=== PATIENT | female | born 1990 | race Caucasian/White ===

== ENCOUNTER 2019-04-06 16:56 | Emergency (ER) | payer OTHER, SELFPAY ==
[2019-04-06 17:18] VITALS: BP 145/85; PULSE 83; RESP 18; TEMP 36.8; O2SAT 100
--- NOTE | 2019-04-06 17:28 | ED.URI ---
HPI - URI/Sore Throat General Chief Complaint: Upper Respiratory Infection Stated Complaint: Sore Throat/Cough Time Seen by Provider: 04/06/19 17:23 Source: patient and RN notes reviewed Mode of arrival: ambulatory Limitations: no limitations History of Present Illness HPI Narrative: Patient presents today with a 2 to 3-day history of sore throat, postnasal drip, nasal congestion, cough, fatigue. Denies fever. No history of asthma. Pain increases with swallowing. She currently rates her sore throat 8/10 but has been using Chloraseptic and tea without much relief. MD elicited complaint: cough and sore throat Related Data Home Medications Medication Instructions Recorded Confirmed No Home Medications 04/06/19 04/06/19 Allergies Allergy/AdvReac Type Severity Reaction Status Date / Time No Known Allergies Allergy Verified 04/06/19 17:16 Review of Systems Review of Systems: Narrative: CONSTITUTIONAL: Denies body aches, fever, chills, or sweats.+ Fatigue EYES: Denies visual changes, redness, or discharge. ENT: Denies rhinorrhea, or otalgia.+ Sore throat, congestion, postnasal drip CARDIOVASCULAR: Denies chest pain, palpitations, or edema. RESPIRATORY: Denies dyspnea.+ Cough GASTROINTESTINAL: Denies abdominal pain, nausea, vomiting, or diarrhea. GENITOURINARY: Denies dysuria or hematuria. SKIN: Denies rash, itching, or wounds. MUSCULOSKELETAL: Denies back pain, joint pain, or myalgia. NEUROLOGIC: Denies headache, numbness, tingling, or weakness. PSYCH: Denies depression or anxiety. PMFSH Social History Social History Gender identity (if verbalized by the patient): Female Comments At time of signature, I have reviewed and agree with nursing past medical, surgical, social and family history unless otherwise noted. Please see nursing chart for further information. There is no relevant family history pertinent to the presenting complaint Exam Narrative: Exam Narrative: GENERAL: Mildly ill-appearing, well-nourished, and in no acute distress. HEAD: Normocephalic, atraumatic. EYES: EOMI. No redness or drainage. Conjunctivae normal. ENT: Mucous membranes pink and moist. Nares congested. No rhinorrhea. TMs normal bilaterally. Throat mildly erythematous and edematous without exudate. Uvula midline. NECK: Normal AROM. Supple. No lymphadenopathy. CHEST: No respiratory distress. Clear to auscultation. HEART: Regular rate and rhythm. No murmur appreciated. Normal peripheral pulses. EXTREMITIES: Normal range of motion. No edema. SKIN: Warm, dry, no rash. NEURO: No focal deficits. Alert and oriented x3. Gait steady. PSYCH: Normal affect. No signs of depression or anxiety. Course Vital Signs Vital signs: Vital Signs Temperature 98.2 F 04/06/19 17:18 Pulse Rate 83 04/06/19 17:18 Respiratory Rate 18 04/06/19 17:18 Blood Pressure 145/85 H 04/06/19 17:18 Pulse Oximetry 100 04/06/19 17:18 Temperature 98.2 F 04/06/19 17:18 Pulse Rate 83 04/06/19 17:18 Respiratory Rate 18 04/06/19 17:18 Blood Pressure 145/85 H 04/06/19 17:18 Pulse Oximetry 100 04/06/19 17:18 Reviewed. Pt has been instructed to follow up with her PCP regarding her elevated blood pressure today. MDM - URI/Sore Throat Differential Diagnosis Differential diagnosis: Likely upper respiratory infection, otitis media, sinusitis, viral infection, bronchitis, pharyngitis and other (Strep throat) Lab Data Attestation: I reviewed the patient's lab results. Labs: Strep Screen Presumptive Negative *(Reference Range: Negative)* Strep Screen Presumptive Negative *(Reference Range: Negative)* Critical Care Time Critical Care Time Critical Care Time: No Discharge Plan Discharge Clinical Impression: Upper respiratory infection Qualifiers: URI type: unspecified URI Qualified Code(s): J06.9 - Acute upper respiratory infection, unspecified Patient Disposition: Home
--- NOTE | 2019-04-14 14:43 | PC.NURSE ---
Pt came in for reprint of work note from [employer] 04/06/19. Note reprinted and given to pt.
== END 2019-04-06 17:35 | disposition home or self-care (01) ==
PROVIDERS: Emergency Provider Nurse Practitioner
DX: J06.9 Acute upper respiratory infection, unspecified (principal)
CPT/HCPCS: 87081; 87880; 99213; G0463

== ENCOUNTER 2019-09-26 15:09 | Emergency (ER) | payer SELFPAY ==
--- NOTE | ~2019-09-26 | XR_ITS ---
XR knee LT min 4V DATE: 09/26/2019 16:01 INDICATION: Left knee pain and swelling TECHNIQUE: Crosstable lateral, AP and bilateral oblique views COMPARISON: None FINDINGS: A fixation plate is identified at the posterosuperior aspect of the lateral femoral condyle . There are drill holes in the distal femur and proximal tibia likely related to past cruciate ligame nt repair. There is prominent suprapatellar knee joint effusion. There is mild periarticular spurring at the patellofemoral and medial and lateral compartments, consi stent with osteoarthritis. No fracture or dislocation, periosteal reaction or bone destruction is detected. IMPRESSION: Prominent suprapatellar knee joint effusion Mild tricompartment osteoarthritis Postoperative change likely related to prior cruciate ligament repair Reviewed, dictated and finalized at location A.
[2019-09-26 15:10] VITALS: BP 143/99; PULSE 81; RESP 18; TEMP 37; O2SAT 100
--- NOTE | 2019-09-26 15:58 | ED.GENADULT ---
HPI - General Adult General Chief complaint: Extremity Injury, Lower Stated complaint: knee swelling Time Seen by Provider: 09/26/19 15:36 Source: patient History of Present Illness HPI narrative: Patient is a 28 y/o female complaining of left knee pain and swelling for last 2 days. She states that her pain is sharp and and rates it as 8/10. Her pain is worse with movement. She denies any fever, chill, redness or recent injury. She had left ACL reconstruction surgery in the past. Related Data Home Medications Medication Instructions Recorded Confirmed No Home Medications 04/06/19 09/26/19 Allergies Allergy/AdvReac Type Severity Reaction Status Date / Time No Known Allergies Allergy Verified 09/26/19 15:13 Review of Systems Constitutional: Constitutional: Denies chills, Denies fever(s), Denies headache(s) and Denies weakness Eyes: Eyes: Denies blurry vision ENT: Denies headache(s) and Denies neck pain Cardiovascular: Cardiovascular: Denies chest pain and Denies dyspnea Respiratory: Respiratory: Denies cough and Denies dyspnea Gastrointestinal: Gastrointestinal: Denies abdominal pain, Denies diarrhea, Denies nausea and Denies vomiting Genitourinary: Genitourinary: Denies hematuria and Denies dysuria Musculoskeletal: Musculoskeletal: Denies back pain, Reports arthralgias (left knee pain) and Denies neck pain Neurologic: Denies headache(s) and Denies weakness [facility] Social History Social History Gender identity (if verbalized by the patient): Female Exam Const: General: no acute distress and well developed Orientation/consciousness: oriented to person, oriented to place, oriented to time and patient oriented x3 HENMT: Head: normocephalic Ears: external ears normal General nose exam: Normal external nose present Eyes: General: appearance normal, both eyes and all related structures Conjunctivae: conjunctivae normal Neck: Neck: normal visual inspection and full ROM Chest: Chest palpation & inspection: normal inspection of the chest and no tenderness Resp: Effort & Inspection: normal respiratory effort and able to speak in complete sentences Cardio: Rate: regular rate Rhythm: regular rhythm GI: GI Palp: No abdominal tenderness and Yes Soft to palpation Skin: General skin exam: normal color and turgor normal Neuro: General: oriented to person, oriented to place, oriented to time and patient oriented x3 Cognition (Neuro): normal cognition Extrem: General: normal to inspection, full ROM and no pedal edema Left lower extremity: knee Details: tenderness Psych: Appearance: grossly normal Mental Status: mental status grossly normal Affect: normal affect Course Vital Signs Vital signs: Vital Signs Temperature 37.0 C 09/26/19 15:10 Pulse Rate 81 09/26/19 15:10 Respiratory Rate 18 09/26/19 15:10 Blood Pressure 143/99 H 09/26/19 15:10 Pulse Oximetry 100 09/26/19 15:10 Temperature 37.0 C 09/26/19 15:10 Pulse Rate 81 09/26/19 15:10 Respiratory Rate 18 09/26/19 15:10 Blood Pressure 143/99 H 09/26/19 15:10 Pulse Oximetry 100 09/26/19 15:10 Medical Decision Making Vital Signs Vital Signs: Vital Signs Temperature 37.0 C 09/26/19 15:10 Pulse Rate 81 09/26/19 15:10 Respiratory Rate 18 09/26/19 15:10 Blood Pressure 143/99 H 09/26/19 15:10 Pulse Oximetry 100 09/26/19 15:10 Temperature 37.0 C 09/26/19 15:10 Pulse Rate 81 09/26/19 15:10 Respiratory Rate 18 09/26/19 15:10 Blood Pressure 143/99 H 09/26/19 15:10 Pulse Oximetry 100 09/26/19 15:10 Discharge Plan Discharge Clinical Impression: Knee pain, Effusion of right knee Patient Disposition: Home, Self-Care Condition: Stable Instructions: Knee Pain (ED), Swollen Joint (ED) Prescriptions: No Action No Home Medications RF: 0 Follow-up/Referrals: PHYSICIAN,RECREATIONAL LEADER [Primary Care Provider]
== END 2019-09-26 17:29 | disposition home or self-care (01) ==
PROVIDERS: Emergency Provider Emergency Medicine
DX: M25.562 Pain in left knee (principal); M25.462 Effusion, left knee
CPT/HCPCS: 73564; 99283

== ENCOUNTER 2020-11-07 08:49 | Emergency (ER) | payer OTHER, SELFPAY ==
[2020-11-07 08:58] VITALS: BP 163/101; PULSE 68; RESP 18; TEMP 36.7; O2SAT 98
--- NOTE | 2020-11-07 09:49 | ED.GENADULT ---
HPI - General Adult General Chief complaint: Wound/Laceration Stated complaint: L Leg Wound Time Seen by Provider: 11/07/20 09:11 Source: patient and RN notes reviewed Mode of arrival: ambulatory Limitations: no limitations History of Present Illness HPI narrative: Patient a 29-year-old female who presents with abscess to the anterior left knee over the prepatellar region she noted a small pimple which increased in size over the last day she was able to drain moderate amount of purulent drainage yesterday she notes redness and tenderness worse with touch and activity denies any fever chills nausea vomiting or immunocompromise Related Data Allergies Allergy/AdvReac Type Severity Reaction Status Date / Time No Known Allergies Allergy Verified 09/26/19 15:13 Review of Systems Review of Systems: All systems reviewed & are unremarkable except as noted in HPI and below PMFSH Social History Social History Gender identity (if verbalized by the patient): Female Exam Narrative: GENERAL: Well-appearing, well-nourished, and in no acute distress. HEAD: Normocephalic, atraumatic. EYES: PERRLA and EOMI. ENT: Nares clear, no rhinorrhea or epistaxis. Mucous membranes moist. CHEST: Clear to auscultation. No respiratory distress. No wheezes rales or rhonchi HEART: Regular rate and rhythm. No murmur heard. Normal peripheral pulses. EXTREMITIES: Normal range of motion. No edema. Red tender swollen area to the anterior left knee in the prepatellar region there is surrounding erythema measuring 3 cm in diameter there is 1/2 cm opening with purulent drainage obtained manually no I&D was necessary SKIN: Warm, dry, no rash. NEURO: No focal deficits. Alert and oriented x3. Neurovascularly intact PSYCH: Normal mood and affect. Course Course Emergency Course: Patient with skin abscess afebrile nontoxic-appearing nondistressed wound cultures were obtained patient will be discharged with outpatient follow-up provided with reasons to return agreeing with the treatment plan Vital Signs Vital signs: Vital Signs Temperature 98.1 F 11/07/20 08:58 Pulse Rate 68 11/07/20 08:58 Respiratory Rate 18 11/07/20 08:58 Blood Pressure 163/101 H 11/07/20 08:58 Pulse Oximetry 98 11/07/20 08:58 Temperature 98.1 F 11/07/20 08:58 Pulse Rate 68 11/07/20 08:58 Respiratory Rate 18 11/07/20 08:58 Blood Pressure 163/101 H 11/07/20 08:58 Pulse Oximetry 98 11/07/20 08:58 Medical Decision Making MDM Narrative Medical decision making narrative: No signs of neurological or vascular compromise on exam. Compartments and tisues are soft without signs of compartment syndrome. Pain is felt appropriate for further evaluation on an outpatient basis. Patient had wound cultures obtained will be treated for skin abscess provided with reasons to return I&D was not necessary given the opening and drainage Vital Signs Vital Signs: Vital Signs Temperature 98.1 F 11/07/20 08:58 Pulse Rate 68 11/07/20 08:58 Respiratory Rate 18 11/07/20 08:58 Blood Pressure 163/101 H 11/07/20 08:58 Pulse Oximetry 98 11/07/20 08:58 Temperature 98.1 F 11/07/20 08:58 Pulse Rate 68 11/07/20 08:58 Respiratory Rate 18 11/07/20 08:58 Blood Pressure 163/101 H 11/07/20 08:58 Pulse Oximetry 98 11/07/20 08:58 Discharge Plan Discharge Clinical Impression: Abscess Patient Disposition: Home, Self-Care Condition: Stable Instructions: Antibiotic Form, Abscess (ED) Additional Instructions: Follow up with primary care in the next 2-3 days for re-evaluation return if symptoms worsen or concerns, any increase in redness swelling pain or fever over 100.5 Clean wound with mild soapy water. Apply antibiotic ointment and clean dressing at least three times daily Follow patient education sheets Warm compresses 4 times a day for 15 minutes each Prescriptions: New doxycycl
== END 2020-11-07 10:09 | disposition home or self-care (01) ==
PROVIDERS: Emergency Provider Emergency Medicine
DX: L02.416 Cutaneous abscess of left lower limb (principal)
CPT/HCPCS: 99283

== ENCOUNTER 2020-12-27 22:55 | Emergency (ER) | payer OTHER, SELFPAY ==
[2020-12-27 22:58] VITALS: BP 137/89; PULSE 72; RESP 18; TEMP 36.9; O2SAT 100
[2020-12-27] MEDS: SODIUM CHLORIDE 0.9% IV 1,000 ML 999 ML IV CONT (23:34)
[2020-12-27] MEDS: ONDANSETRON INJ 4 MG/2 ML VIAL IV PUSH (23:35)
[2020-12-27 23:49] LABS: Basophils Absolute Auto 0.1 K/mm3 (0.0-0.1); Basophils Percent Auto 0.5 % (0.2-1.2); Eosinophils Absolute Auto 0.2 K/mm3 (0-0.3); Eosinophils Percent Auto 1.2 % (0-4.4); Hematocrit 40.9 % (37.0-47.0); Hemoglobin 13.4 g/dL (12.0-15.0); Immature Granulocyte Absolute 0.08 K/mm3 (0.00-0.031); Immature Granulocyte Percent A 0.4 % (0-0.5); Lymphocytes Percent Auto 11.9 % (18.3-44.2); Mean Corpuscular HGB Conc 32.8 g/dl (32-36); Mean Corpuscular Hemoglobin 29.3 pg (26-34); Mean Corpuscular Volume 89.5 fl (80-100); Mean Platelet Volume 10.6 fl (7.4-10.4); Monocytes Absolute Auto 1.1 K/mm3 (0.1-0.6); Monocytes Percent Auto 5.7 % (2.6-8.5); Neutrophils Absolute Auto 14.9 K/mm3 (1.3-6.7); Neutrophils Percent Auto 80.3 % (45.5-73.1); Platelet Count Result 269 k/mm3 (150-375); Red Blood Count 4.57 M/mm3 (4.2-5.4); Red Cell Distribution Width 13.2 % (11.5-14.5); White Blood Count 18.5 K/mm3 (4.5-10.0)
[2020-12-27 23:59] LABS: Add Urine Microscopic? YES; Appearance Urine Cloudy (Clear); Bilirubin Urine Negative (Negative); Blood Urine Negative (Negative); Color Urine Amber (Yellow); Glucose Urine UA Negative (Negative); Ketones Urine 1+ mg/dL (Negative); Leukocyte Esterase Ur 2+ LEU/UL (Negative); Mucus Urine Heavy /lpf; Nitrate Urine Negative (Negative); Protein Urine 1+ mg/dL (Negative); Specific Grav Ur 1.028 (1.001-1.035); Squamous Epithelial Cell Urine Many /hpf (Few); WBC Urine 21-30 /hpf
[2020-12-28 00:15] LABS: Alanine Aminotransferase 20 U/L (4-35); Albumin Level 4.5 g/dL (3.5-5.1); Alkaline Phosphatase 63 U/L (38-126); Anion Gap 8 mmol/L (8-16); Aspartate Amino Transferase 22 U/L (14-36); Bilirubin,Total 0.6 mg/dL (0.2-1.3); Blood Urea Nitrogen 7 mg/dL (7-17); Calcium 9.1 mg/dL (8.4-10.2); Carbon Dioxide 27 mmol/L (22-30); Chloride 98 mmol/L (98-107); Estimated CRCL calculation 129 ml/min; Estimated Glomerular Filt Rate > 60; Glucose 105 mg/dL (65-110); Potassium 3.7 mmol/L (3.4-5.0); Sodium 133 mmol/L (137-145)
--- NOTE | 2020-12-28 00:27 | ED.GENADULT ---
HPI - General Adult General Chief complaint: Nausea/Vomiting/Diarrhea Stated complaint: vomiting Time Seen by Provider: 12/27/20 23:03 Source: patient and family Mode of arrival: ambulatory Limitations: no limitations History of Present Illness HPI narrative: 30-year-old with no major medical problems here with complaints of nausea, vomiting and diarrhea for past 3 days however she states her diarrhea has improved but she is unable to keep any fluids down. She feels weak and dehydrated. No other family member is sick at this time. Onset (ago): day(s) (3) Severity: moderate Relieving factors: none Exacerbating factors: none Associated symptoms: nausea/vomiting and weakness Related Data Allergies Allergy/AdvReac Type Severity Reaction Status Date / Time No Known Allergies Allergy Verified 12/27/20 23:03 Review of Systems Review of Systems: All systems reviewed & are unremarkable except as noted in HPI and below Constitutional: Constitutional: Reports no additional constitutional complaints Eyes: Eyes: Reports no additional eye complaints ENT: Reports system reviewed and no additional complaints, except as documented Cardiovascular: Cardiovascular: Reports no additional cardiovascular complaints Respiratory: Respiratory: Reports no additional respiratory complaints Gastrointestinal: Gastrointestinal: Reports as per HPI Musculoskeletal: Musculoskeletal: Reports no additional musculoskeletal complaints Integumentary/Breasts: Skin/Breast: Reports system reviewed and no additional complaints, except as docu Neurologic: Reports system reviewed and no additional complaints, except as documented PMFSH Social History Social History Gender identity (if verbalized by the patient): Female Exam Narrative: GENERAL: Well-appearing, well-nourished, and in no acute distress. HEAD: Normocephalic, atraumatic. EYES: PERRLA and EOMI.. NECK: Supple. CHEST: Clear to auscultation. No respiratory distress. HEART: Regular rate and rhythm. No murmur heard. Normal peripheral pulses. ABDOMEN: Soft, nontender, nondistended, normal active bowel sounds. EXTREMITIES: Normal range of motion. No edema. SKIN: Warm, dry, no rash. NEURO: No focal deficits. Alert and oriented x3. PSYCH: Normal mood and affect. Course Course Emergency Course: Patient started feeling much better after liter of fluid and Zofran. Informed her about her lab work and status. 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 Meanwhile take antibiotic prescribed for her UTI. Vital Signs Vital signs: Vital Signs Temperature 36.9 C 12/27/20 22:58 Pulse Rate 72 12/27/20 22:58 Respiratory Rate 18 12/27/20 22:58 Blood Pressure 137/89 12/27/20 22:58 Pulse Oximetry 100 12/27/20 22:58 Temperature 36.9 C 12/27/20 22:58 Pulse Rate 72 12/27/20 22:58 Respiratory Rate 18 12/27/20 22:58 Blood Pressure 137/89 12/27/20 22:58 Pulse Oximetry 100 12/27/20 22:58 Medical Decision Making MDM Narrative Medical decision making narrative: With a history of nausea vomiting diarrhea do CBC, chemistry and IV fluids and also obtain UA and test. Vital Signs Vital Signs: Vital Signs Temperature 36.9 C 12/27/20 22:58 Pulse Rate 72 12/27/20 22:58 Respiratory Rate 18 12/27/20 22:58 Blood Pressure 137/89 12/27/20 22:58 Pulse Oximetry 100 12/27/20 22:58 Temperature 36.9 C 12/27/20 22:58 Pulse Rate 72 12/27/20 22:58 Respiratory Rate 18 12/27/20 22:58 Blood Pressure 137/89 12/27/20 22:58 Pulse Oximetry 100 12/27/20 22:58 Lab Data Result diagrams: 12/27/20 23:39 12/27/20 23:39 Labs: Lab Results 12/27/20 12/27/20 12/27/20 Range/Units 23:39 23:39 23:39 WBC 18.5 H (4.5-10.0) K/mm3 RBC 4.57 (4.2-5.4) M/mm3 Hgb 13.4 (12.0-15.0) g/dL Hct 40.9 (37.0-47.0) % MCV 89.5 (80-100) fl MCH 29.3 (
[2020-12-28 00:35] VITALS: BP 135/86; PULSE 65; RESP 18; O2SAT 97
== END 2020-12-28 00:47 | disposition home or self-care (01) ==
PROVIDERS: Emergency Provider Family Medicine
DX: O23.41 Unspecified infection of urinary tract in pregnancy, first trimester (principal); N39.0 Urinary tract infection, site not specified; Z3A.00 Weeks of gestation of pregnancy not specified; K52.9 Noninfective gastroenteritis and colitis, unspecified
CPT/HCPCS: 36415; 80053; 81001; 81025; 84702; 85025; 87077; 87086; 87088; 96361; 96374; 99284; J2405; J7030

== ENCOUNTER 2021-01-24 14:14 | Emergency (ER) | payer OTHER, SELFPAY ==
[2021-01-24 14:17] VITALS: BP 131/79; PULSE 82; RESP 16; TEMP 36.6; O2SAT 100
--- NOTE | 2021-01-24 14:41 | PC.NURSE ---
pt states she has to leave for a sung soccer game and will come back to be seen later.
== END 2021-01-24 14:41 | disposition left against medical advice (07) ==
DX: Z53.21 Procedure and treatment not carried out due to patient leaving prior to being seen by health care provider (principal)
CPT/HCPCS: 99199

== ENCOUNTER 2021-01-25 12:14 | Emergency (ER) | payer OTHER, SELFPAY ==
--- NOTE | ~2021-01-25 | US_ITS ---
EXAMINATION: US OB <= 14 weeks fetus DATE: 01/25/2021 15:14 INDICATION: Miscarriage. TECHNIQUE: Real-time transabdominal pelvic ultrasound was performed. COMPARISON: None. FINDINGS: The uterus measures 12.0 x 7.9 x 8.2 cm. There is an intrauterine gestational sac. The crown ru mp length measures 1.7 cm, which correlates with an estimated gestational age of 8 weeks and 1 day(s) +/- 5 day(s). heart motion is not identified by M-mode Doppler. There is a small subchorionic hematoma. The right ovary measures 2.6 x 2.1 x 1.8 cm. The left ovary measures 4.9 x 3.7 x 4.0 cm. Th ere is a 3.5 cm cyst in left ovary, likely a follicular cyst. There is no free fluid in the pelvis. IMPRESSION: 1. demise. Reviewed, dictated and finalized at location A. [employer] [employer] IMPRESSION: 1. demise.
[2021-01-25 12:20] VITALS: BP 124/72; PULSE 80; RESP 16; TEMP 36.9; O2SAT 100
--- NOTE | 2021-01-25 14:12 | ED.PREGNANCY ---
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 Patient reports her last menstrual cycle was on August but she has irregular cycles. She had positive test in Mid December. She had an ultrasound done yesterday, and she states they were unable to find heart beat. She came to ER due to concern for a miscarriage. She denies abdominal pain, nausea, vomiting, dizziness or vaginal bleeding. She has called to follow up with [facility] [place] for follow up. Related Data Allergies Allergy/AdvReac Type Severity Reaction Status Date / Time No Known Allergies Allergy Verified 01/25/21 14:34 Review of Systems Review of Systems: All systems reviewed & are unremarkable except as noted in HPI and below PMFSH Past Medical History Medical History (Updated 01/25/21 @ 15:51 by Jacinda Pichardo MD) Patient denies medical problems Surgical History Surgical History (Updated 01/25/21 @ 14:30 by Jacinda Pichardo MD) History of repair of ACL Social History Social History (Updated 01/25/21 @ 14:30 by Jacinda Pichardo MD) Smoking status: Current every day smoker Alcohol intake: former Substance use: never Gender identity (if verbalized by the patient): Female Exam Const: General: no acute distress and alert Orientation/consciousness: patient oriented x3 Eyes: EOM: EOMs intact bilaterally Resp: Effort & Inspection: normal respiratory effort and no retractions Auscultation: clear to auscultation bilaterally Cardio: Rate: regular rate Rhythm: regular rhythm Heart sounds: no murmurs GI: GI Palp: Yes Soft to palpation, No Tenderness to palpation present (GI) and No Guarding due to palpation present (GI) Auscultation: normal bowel sounds Skin: General skin exam: normal color Rashes: no rashes Neuro: General: patient oriented x3, moves all extremities and CN's II-XI intact bilaterally Extrem: General: normal to inspection Psych: Mental Status: mental status grossly normal Affect: normal affect Course Reevaluation(s) Reevaluation #1: I discussed with patient unfortunately no heart beat was found so she will need to follow up with OBGYN. Previous records report patient is A positive blood type . Date: 01/25/21 Time: 15:39 Consultations Consultation #1: I spoke with Dr. Blanchard who states he can see patient in clinic tomorrow to discuss options. Date: 01/25/21 Time: 15:45 Vital Signs Vital signs: Vital Signs Temperature 98.4 F 01/25/21 12:20 Pulse Rate 80 01/25/21 12:20 Respiratory Rate 16 01/25/21 12:20 Blood Pressure 124/72 01/25/21 12:20 Pulse Oximetry 100 01/25/21 12:20 Temperature 98.4 F 01/25/21 12:20 Pulse Rate 60 01/25/21 16:06 Respiratory Rate 14 01/25/21 16:06 Blood Pressure 134/84 01/25/21 16:06 Pulse Oximetry 100 01/25/21 16:06 MDM - OB/Uterine Contractions Lab Data Attestation: I reviewed the patient's lab results. Result diagrams: 01/25/21 14:21 Labs: Lab Results 01/25/21 01/25/21 01/25/21 Range/Units 14:21 14:21 14:21 WBC 9.7 (4.5-10.0) K/mm3 RBC 4.49 (4.2-5.4) M/mm3 Hgb 13.1 (12.0-15.0) g/dL Hct 39.5 (37.0-47.0) % MCV 88.0 (80-100) fl MCH 29.2 (26-34) pg MCHC 33.2 (32-36) g/dl RDW 13.3 (11.5-14.5) % Plt Count 262 (150-375) k/mm3 MPV 10.8 H (7.4-10.4) fl Immature Gran % (Auto) 0.3 (0-0.5) % Neut % (Auto) 76.2 H (45.5-73.1) % Lymph % (Auto) 15.7 L (18.3-44.2) % Emanuel % (Auto) 4.6 (2.6-8.5) % Eos % (Auto) 2.5 (0-4.4) % Baso % (Auto) 0.7 (0.2-1.2) % Lymph # (Auto) 1.52 (0.9-3.2) K/mm3 Emanuel # (Auto) 0.4
--- NOTE | 2021-01-25 14:30 | PC.NURSE ---
20g IV initiated in Right AC x1 attempt, well tolerated. labs drawn. Patient denies pain and needs at this time. call light within reach.
[2021-01-25 14:36] LABS: Basophils Absolute Auto 0.1 K/mm3 (0.0-0.1); Basophils Percent Auto 0.7 % (0.2-1.2); Eosinophils Absolute Auto 0.2 K/mm3 (0-0.3); Eosinophils Percent Auto 2.5 % (0-4.4); Hematocrit 39.5 % (37.0-47.0); Hemoglobin 13.1 g/dL (12.0-15.0); Immature Granulocyte Absolute 0.03 K/mm3 (0.00-0.031); Immature Granulocyte Percent A 0.3 % (0-0.5); Lymphocytes Absolute Auto 1.52 K/mm3 (0.9-3.2); Lymphocytes Percent Auto 15.7 % (18.3-44.2); Mean Corpuscular HGB Conc 33.2 g/dl (32-36); Mean Corpuscular Hemoglobin 29.2 pg (26-34); Mean Platelet Volume 10.8 fl (7.4-10.4); Monocytes Absolute Auto 0.4 K/mm3 (0.1-0.6); Monocytes Percent Auto 4.6 % (2.6-8.5); Neutrophils Absolute Auto 7.4 K/mm3 (1.3-6.7); Neutrophils Percent Auto 76.2 % (45.5-73.1); Platelet Count Result 262 k/mm3 (150-375); Red Blood Count 4.49 M/mm3 (4.2-5.4); Red Cell Distribution Width 13.3 % (11.5-14.5); White Blood Count 9.7 K/mm3 (4.5-10.0)
[2021-01-25 16:06] VITALS: BP 134/84; PULSE 60; RESP 14; O2SAT 100
== END 2021-01-25 16:07 | disposition home or self-care (01) ==
PROVIDERS: Emergency Medicine; Emergency Provider General Practice
DX: O36.4XX0 Maternal care for intrauterine death, not applicable or unspecified (principal); Z3A.08 8 weeks gestation of pregnancy
CPT/HCPCS: 36415; 76801; 84702; 85025; 85461; 99284

== ENCOUNTER 2021-01-31 13:42 | Emergency (ER) | payer OTHER, SELFPAY ==
[2021-01-31 14:00] VITALS: BP 125/85; PULSE 54; RESP 16; TEMP 36.6; O2SAT 100
[2021-01-31 18:06] VITALS: BP 132/82; PULSE 62; RESP 16; TEMP 36.6; O2SAT 100
[2021-01-31 19:17] LABS: Basophils Absolute Auto 0.1 K/mm3 (0.0-0.1); Basophils Percent Auto 0.7 % (0.2-1.2); Eosinophils Absolute Auto 0.5 K/mm3 (0-0.3); Hematocrit 37.6 % (37.0-47.0); Hemoglobin 12.2 g/dL (12.0-15.0); Immature Granulocyte Absolute 0.04 K/mm3 (0.00-0.031); Immature Granulocyte Percent A 0.3 % (0-0.5); Lymphocytes Absolute Auto 2.51 K/mm3 (0.9-3.2); Lymphocytes Percent Auto 19.1 % (18.3-44.2); Mean Corpuscular HGB Conc 32.4 g/dl (32-36); Mean Corpuscular Hemoglobin 29.3 pg (26-34); Mean Corpuscular Volume 90.4 fl (80-100); Monocytes Absolute Auto 0.9 K/mm3 (0.1-0.6); Monocytes Percent Auto 6.8 % (2.6-8.5); Neutrophils Absolute Auto 9.1 K/mm3 (1.3-6.7); Neutrophils Percent Auto 69.1 % (45.5-73.1); Platelet Count Result 231 k/mm3 (150-375); Red Blood Count 4.16 M/mm3 (4.2-5.4); Red Cell Distribution Width 13.2 % (11.5-14.5); White Blood Count 13.1 K/mm3 (4.5-10.0)
[2021-01-31 19:32] LABS: Anion Gap 5 mmol/L (8-16); Blood Urea Nitrogen 7 mg/dL (7-17); Calcium 8.7 mg/dL (8.4-10.2); Carbon Dioxide 30 mmol/L (22-30); Chloride 99 mmol/L (98-107); Estimated CRCL calculation 155 ml/min; Estimated Glomerular Filt Rate > 60; Glucose 101 mg/dL (65-110); Sodium 134 mmol/L (137-145)
[2021-01-31 19:34] LABS: Alanine Aminotransferase 13 U/L (4-35); Albumin Level 4.1 g/dL (3.5-5.1); Alkaline Phosphatase 64 U/L (38-126); Aspartate Amino Transferase 20 U/L (14-36); Bilirubin,Total 0.2 mg/dL (0.2-1.3)
[2021-01-31 19:38] LABS: Lipase 57 U/L (23-300)
[2021-01-31 19:43] VITALS: BP 120/93; PULSE 65; RESP 16; O2SAT 100
--- NOTE | 2021-01-31 19:47 | PC.NURSE ---
ASSUMED CARE OF PATIENT
[2021-01-31] MEDS: SODIUM CHLORIDE 0.9% IV 1,000 ML 150 ML IV CONT (20:05)
[2021-01-31] MEDS: ONDANSETRON INJ 4 MG/2 ML VIAL IV PUSH (20:07)
[2021-01-31] MEDS: MORPHINE SULFATE (*CRX) 4 MG/ML INJ IV PUSH (20:09)
--- NOTE | 2021-01-31 21:19 | ED.ABDPAIN ---
HPI - Abdominal Pain General Chief Complaint: Vaginal Bleeding Stated Complaint: vag bleeding- angel luis for D&C tomorrow Time Seen by Provider: 01/31/21 18:32 Source: patient Mode of arrival: ambulatory Limitations: no limitations History of Present Illness HPI narrative: 30-year-old with no major medical problems here with midepigastric pain since early this afternoon. She states that she is scheduled for D&C in the morning. She states that she still has vaginal bleeding but not severe. She denies any fever or chills. Has occasional nausea. MD elicited complaint: abdominal pain Pertinent past history: none Pain Consistency: constant Location: epigastric Quality: aching Relieving factors: nothing Related Data Allergies Allergy/AdvReac Type Severity Reaction Status Date / Time No Known Allergies Allergy Verified 01/25/21 14:34 Review of Systems Review of Systems: All systems reviewed & are unremarkable except as noted in HPI and below Constitutional: Constitutional: Reports no additional constitutional complaints Eyes: Eyes: Reports no additional eye complaints ENT: Reports system reviewed and no additional complaints, except as documented Cardiovascular: Cardiovascular: Reports no additional cardiovascular complaints Respiratory: Respiratory: Reports no additional respiratory complaints Gastrointestinal: Gastrointestinal: Reports abdominal pain Genitourinary: Genitourinary: Reports as per HPI Musculoskeletal: Musculoskeletal: Reports no additional musculoskeletal complaints PMFSH Past Medical History Medical History Patient denies medical problems Surgical History Surgical History History of repair of ACL Social History Social History Smoking status: Current every day smoker Alcohol intake: former Substance use: never Gender identity (if verbalized by the patient): Female Exam Narrative: GENERAL: Well-appearing, well-nourished, and in no acute distress. HEAD: Normocephalic, atraumatic. EYES: PERRLA and EOMI. NECK: Supple. CHEST: Clear to auscultation. No respiratory distress. HEART: Regular rate and rhythm. No murmur heard. Normal peripheral pulses. ABDOMEN: Soft, tender in the epigastric area, nondistended, normal active bowel sounds. EXTREMITIES: Normal range of motion. No edema. SKIN: Warm, dry, no rash. NEURO: No focal deficits. Alert and oriented x3. PSYCH: Normal mood and affect. Course Course Emergency Course: Patient feeling much better after IV fluids and morphine. I did inform her about her lab work, discussed with Dr. Blanchard patient can be discharged home and follow-up with Dr. Melisa Onofre in the morning as scheduled Vital Signs Vital signs: Vital Signs Temperature 36.6 C 01/31/21 14:00 Pulse Rate 54 L 01/31/21 14:00 Respiratory Rate 16 01/31/21 14:00 Blood Pressure 125/85 01/31/21 14:00 Pulse Oximetry 100 01/31/21 14:00 Temperature 36.6 C 01/31/21 18:06 Pulse Rate 65 01/31/21 19:43 Respiratory Rate 16 01/31/21 19:43 Blood Pressure 120/93 H 01/31/21 19:43 Pulse Oximetry 100 01/31/21 19:43 MDM - Abdominal Pain Lab Data Result diagrams: 01/31/21 19:07 01/31/21 19:07 Labs: Lab Results 01/31/21 01/31/21 01/31/21 Range/Units 19:07 19:07 19:07 WBC 13.1 H (4.5-10.0) K/mm3 RBC 4.16 L (4.2-5.4) M/mm3 Hgb 12.2 (12.0-15.0) g/dL Hct 37.6 (37.0-47.0) % MCV 90.4 (80-100) fl MCH 29.3 (26-34) pg MCHC 32.4 (32-36) g/dl RDW 13.2 (11.5-14.5) % Plt Count 231 (150-375) k/mm3 MPV 11.0 H (7.4-10.4) fl Immature Gran % (Auto) 0.3 (0-0.5) % Neut % (Auto) 69.1 (45.5-73.1) % Lymph % (Auto) 19.1 (18.3-44.2) % [place] % (Auto) 6.8 (2.6-8.5) % Eos % (Auto) 4.0 (0-4.4) % Baso % (Auto) 0.7 (0.
[2021-01-31 22:01] VITALS: BP 125/86; PULSE 67; RESP 18; O2SAT 95
== END 2021-01-31 22:02 | disposition home or self-care (01) ==
PROVIDERS: Emergency Provider Family Medicine
DX: R10.13 Epigastric pain (principal); F17.200 Nicotine dependence, unspecified, uncomplicated
CPT/HCPCS: 36415; 80048; 80076; 83690; 84702; 85025; 96361; 96374; 96375; 99284; J2270; J2405; J7030

== ENCOUNTER → 2021-02-02 00:56 | Outpatient (CLI) | payer OTHER, SELFPAY ==
[2021-02-02 19:19] LABS: SARS-CoV-2 RNA PCR Negative
== END ==
PROVIDERS: Visit Provider Student in an Organized Health Care Education/Training Program
DX: Z01.812 Encounter for preprocedural laboratory examination (principal); Z20.822 Contact with and (suspected) exposure to COVID-19
CPT/HCPCS: C9803; U0003; U0005

== ENCOUNTER 2021-02-05 01:21 | Day surgery (SDC) | payer OTHER, SELFPAY ==
--- NOTE | 2021-02-05 07:57 | PM.IMHP ---
H&P: HPI History of Present Illness Date/Time: 02/05/21 07:57 Chief Complaint: spontaneous Narrative: 30 yo who presents for suction D&C for management of spontaneous . Pt states her LMP was some time in July or August. She reports irregular menses. She first found out she was in mid-December. her beta HCG at that time was 36,000. She then presented to an [facility] boutique to get a dating US to schedule and appointment on 01/24/21. US showed no FHT. She then presented to the ED on 01/24/21 for repeat US. US again showed no FHT. Her beta-HCG at that time was now 16,000. She then presented to the ED on 01/31/21 with complaints of vaginal bleeding. She was hemodynamically stable. Beta hcg is now 5,000. Pt elected to proceed with surgical management via suction D&C. Review of Systems Cardiovascular: Cardiovascular: Denies chest pain, Denies leg edema, Denies palpitations, Denies dyspnea and Denies dyspnea on exertion Respiratory: Respiratory: Denies cough, Denies dyspnea and Denies dyspnea on exertion Gastrointestinal: Gastrointestinal: Denies abdominal pain, Denies constipation, Denies diarrhea, Denies nausea and Denies vomiting Genitourinary: Genitourinary: Denies hematuria, Denies urinary frequency, Denies dysuria, Denies pelvic pain, Denies urinary incontinence and Denies vaginal discharge Neurologic: Reports system reviewed and no additional complaints, except as documented Psychiatric: Psychiatric: Reports no additional psychiatric complaints Endocrine: Endocrine: Denies palpitations PMFSH Past Medical History Medical History Patient denies medical problems Surgical History Surgical History History of repair of ACL Social History Social History Smoking status: Current every day smoker Alcohol intake: former Substance use: never Gender identity (if verbalized by the patient): Female Meds Home Medications and Allergies Home Medications Medication Instructions Recorded Confirmed Type ondansetron 4 mg PO Q6-8H PRN #14 tablet 12/28/20 Rx dicyclomine 20 mg PO TID #30 tablet 01/31/21 Rx Allergies Allergy/AdvReac Type Severity Reaction Status Date / Time No Known Allergies Allergy Verified 01/25/21 14:34 Exam Const: General: no acute distress Eyes: EOM: EOMs intact bilaterally Neck: Neck: supple Thyroid: thyroid normal Chest: Breast/axilla inspection: normal inspection of the breasts Breast/axilla palpation: normal palpation of the breasts, normal palpation of the axillae and no axillary lymphadenopathy Resp: Effort & Inspection: normal respiratory effort Auscultation: clear to auscultation bilaterally Cardio: Rate: regular rate Rhythm: regular rhythm GI: Inspection: non-distended GI Palp: Yes Soft to palpation, No Tenderness to palpation present (GI) and No Guarding due to palpation present (GI) Auscultation: normal bowel sounds : General: No bladder normal to palpation External Female Exam: normal external appearance Speculum Exam - Vagina: normal vaginal discharge and No vaginal bleeding Speculum Exam - Cervix: nontender Bimanual exam- vagina & uterus: No bladder normal to palpation and No Cervical tenderness present OB/external & speculum: No vaginal bleeding Skin: General skin exam: normal color and no rashes or lesions noted Neuro: Cognition (Neuro): normal cognition Speech: normal speech Extrem: General: normal to inspection and no edema Psych: Mental Status: mental status grossly normal Affect: normal affect Assessment and Plan Assessment and plan (1) Spontaneous : Code(s): O03.9 - Complete or unspecified spontaneous without complication Status: Acute Assessment and Plan: pt had positive test in december beta hcg trending down from initial le
--- NOTE | 2021-02-05 08:01 | WPDHPUPDATE1 ---
History and Physical Update Update Date/Time: 02/05/21 08:01 History and Physical has been reviewed, including an updated exam of the patient. There are NO changes in the patient's condition. Risks, benefits, and alternatives have been discussed and questions answered. Patient agrees to proceed with procedure.
[2021-02-05] MEDS: ACETAMINOPHEN 500 MG TABLET 1000 MG PO (10:50)
[2021-02-05] MEDS: LACTATED RINGERS 1,000 ML 30 ML IV CONT (11:00)
[2021-02-05] MEDS: DOXYCYCLINE IV 100 MG in SODIUM CHLORIDE 0.9% IV 100 ML IVPB (11:02)
[2021-02-05 11:09] VITALS: BP 132/78; PULSE 56; TEMP 36.9; O2SAT 100
--- NOTE | 2021-02-05 11:44 | WPDANESEPPF ---
Anes - Initial Pre Proc Eval Procedure: Operation Date: 02/05/21 12:00 Proposed Procedures p Suction Dilation and Curettage - Everton Damon MD Date/Time: 02/05/21 11:44 Surgeon: Everton Damon MD Pre Op Diagnosis: missed ab Patient Data Age: 30 Gender: F Height: Weight: 81.7 kg Last Vital Signs Temp 36.9 C 02/05/21 11:09 Pulse 56 L 02/05/21 11:09 BP 132/78 02/05/21 11:09 Pulse Ox 100 02/05/21 11:09 Allergies Allergy/AdvReac Type Severity Reaction Status Date / Time No Known Allergies Allergy Verified 01/25/21 14:34 Home Medications Medication Instructions Recorded Confirmed Type ondansetron 4 mg PO Q6-8H PRN #14 tablet 12/28/20 Rx dicyclomine 20 mg PO TID #30 tablet 01/31/21 Rx Patient hx anesthesia problems: none Family hx anesthesia problems: none Results Review: All pre-operative results and documents have been reviewed as part of the pre-operative evaluation. [facility] Past Medical History Medical History Patient denies medical problems Surgical History Surgical History History of repair of ACL Social History Social History (Updated 02/05/21 @ 11:45 by Chilango Guzmán DO) Smoking status: Current every day smoker Alcohol intake: former Substance use: never Substance use type: marijuana Gender identity (if verbalized by the patient): Female Anes - Eval Final PreProcedure Day of Procedure 02/05/21 11:44 Patient weight: overweight Heart: regular rate and rhythm Lungs: clear to auscultation and normal air movement Airway: Mallampati scale class II Neurological: alert and oriented Last oral intake: >/= 8 hours ASA classification: II Emergent: no Anesthetic plan: proceed Anesthesia type and monitoring: general GIVS and standard monitoring Results Review: All pre-operative results and documents have been reviewed as part of the pre-operative evaluation. Informed Consent: The patient's anesthetic plan and its attendant risks and benefits were discussed with the patient/family/POA. Questions were solicited and answers provided to the satisfaction of the patient/family/POA.
[2021-02-05] MEDS: KETOROLAC 30 MG/ML VIAL (*BKC) IV PUSH (12:29)
--- NOTE | 2021-02-05 12:39 | W.PM.PROC2 ---
Procedure Note - Detailed Date of Procedure 02/05/21 Pre-op Diagnosis missed ab Post-op Diagnosis same Procedure Performed Suction Dilation & curettage Surgeon Everton Damon MD Anesthesia general Indications spontaneous missed on pelvic US Findings intrauterine products of conception Description of Procedure The patient was taken to the operating room after a missed had been noted on on transvaginal ultrasound. The risks, benefits and alternatives of the procedure were reviewed with the patient and informed consent was obtained. The patient was taken to the OR and anesthesia was noted to be adequate. The patient was placed in the dorsolithotomy position. Pelvic exam was performed with findings noted above. The patient was prepped and draped in the usual sterile fashion. Sterile speculum was placed in the vagina and the cervix was grasped with a tenaculum. Paracervical block was performed with 1% lidocaine. The cervix was dilated further to allow for passage of a 8 mm suction curette. The 8 mm suction curette was gently advanced to the fundus, suction was activated, and the tip was rotated while being withdrawn to clear the uterus of products. This suction process was repeated 3 additional times due to the quantity of material in the uterus. The sharp curette was introduced and advanced to the fundus to remove any remaining products. The suction curette was reintroduced one final time to ensure all products had been removed. The tenaculum was removed. Hemostasis of the tenaculum site was obtained with silver nitrate and pressure. Good hemostasis was noted. Instrument, sponge, and sharp counts were correct. Patient tolerated the procedure well and was taken to the recovery room in stable condition. Estimated Blood Loss 50 Urine Output 100 Drains No Packing No Pathology yes (uterine contents) Complications No immediate complications Condition stable Disposition PACU
[2021-02-05 12:41] VITALS: BP 105/57; PULSE 67; RESP 16; O2SAT 99
[2021-02-05 13:05] VITALS: BP 110/78; PULSE 70; RESP 16
[2021-02-05] MEDS: oxyCODONE HCL (*CRX) 5 MG TAB IR PO (13:32)
[2021-02-05 13:35] VITALS: BP 119/82; PULSE 58; RESP 16
== END 2021-02-05 13:40 | disposition home or self-care (01) ==
PROVIDERS: Visit Provider Student in an Organized Health Care Education/Training Program
PROC: (CPT 59820; principal; 2021-02-05 12:00)
DX: O02.1 Missed abortion (principal); F17.200 Nicotine dependence, unspecified, uncomplicated; Z3A.00 Weeks of gestation of pregnancy not specified
CPT/HCPCS: 59820; 88305; A9270; J1885; J2250; J2704; J3010; J7120

== ENCOUNTER 2021-09-12 19:01 | Emergency (ER) | payer OTHER, SELFPAY ==
[2021-09-12 19:09] VITALS: BP 124/99; PULSE 70; RESP 16; TEMP 36.5; O2SAT 99
--- NOTE | 2021-09-12 19:27 | ED.SKABFB ---
HPI - Skin/Abscess/Foreign Bdy General Chief complaint: Skin/Abscess/Foreign Body Stated complaint: poison sarah Time Seen by Provider: 09/12/21 19:27 Source: patient Mode of arrival: ambulatory Limitations: no limitations History of Present Illness HPI narrative: 30 yo F presents with c/o poison sarah rash to bilatearal forearms, ABD area for 2 days. Started after looking for her dog in bushes. Apply OTC cortizone cream. States she is still very itchy. All systems reviewed and negative except as noted above. Related Data Allergies Allergy/AdvReac Type Severity Reaction Status Date / Time No Known Allergies Allergy Verified 01/25/21 14:34 Review of Systems Review of Systems: CONSTITUTIONAL: Denies fever, chills, or sweats. EYES: Denies visual changes, redness, or discharge. ENT: Denies rhinorrhea, congestion, sore throat, or otalgia. CARDIOVASCULAR: Denies chest pain, palpitations, or edema. RESPIRATORY: Denies cough or dyspnea. GASTROINTESTINAL: Denies abdominal pain, nausea, vomiting, or diarrhea. GENITOURINARY: Denies dysuria or hematuria. SKIN: Reports poison sarah rash, itching. MUSCULOSKELETAL: Denies back pain, joint pain, or myalgia. NEUROLOGIC: Denies headache, numbness, or weakness. PSYCHIATRIC: Denies anxiety or depression. All other systems reviewed are negative, except as documented in HPI. PMFSH Past Medical History Medical History Patient denies medical problems Surgical History Surgical History History of repair of ACL Social History Social History (Updated 02/05/21 @ 11:45 by Chilango Guzmán DO) Smoking status: Current every day smoker Alcohol intake: former Substance use: never Substance use type: marijuana Gender identity (if verbalized by the patient): Female Comments At time of signature, agree with nursing past medical, surgical, social and family history. There is no relevant family history pertinent to the presenting complaint. Exam Narrative: GENERAL: This is a well-nourished, well-developed patient, in no apparent distress. HEAD: normocephalic, atraumatic. EYES: PERRL. Sclera clear/white. Vision is grossly intact. EARS: External ears normal NOSE: External nose normal NECK: Neck supple, non-tender without lymphadenopathy, masses or thyromegaly. CARDIOVASCULAR: Regular rate and rhythm without murmurs, gallops, or rubs. RESPIRATORY: Clear to auscultation. Breath sounds equal bilaterally. No wheezes, rales, or rhonchi. SKIN: warm, Dry, intact, good texture and turgor. erythematous vesicular weeping rash to bilateral forearms and ABD NEURO: awake, alert, and oriented to person, place and time. There were no obvious focal neurologic abnormalities. EXTREMITIES: No joint tenderness, effusion, or edema noted. Course Course Level of Care: Express Care Visit Vital Signs Vital signs: Vital Signs Temperature 36.5 C 09/12/21 19:09 Pulse Rate 70 09/12/21 19:09 Respiratory Rate 16 09/12/21 19:09 Blood Pressure 124/99 H 09/12/21 19:09 Pulse Oximetry 99 09/12/21 19:09 Oxygen Delivery Room Air 09/12/21 19:09 Temperature 36.5 C 09/12/21 19:09 Pulse Rate 70 09/12/21 19:09 Respiratory Rate 16 09/12/21 19:09 Blood Pressure 124/99 H 09/12/21 19:09 Pulse Oximetry 99 09/12/21 19:09 Oxygen Delivery Room Air 09/12/21 19:09 reviewed MDM - Skin/Abscess/Foreign Bdy MDM Narrative Medical decision making narrative: Patient is aware of diagnosis, understands and agrees to treatment plan. Anticipatory guidance given. Patient agrees to follow-up as directed and is aware of reasons to seek care at the emergency department. Portions of this record may have been created with voice recognition software Discharge Plan Discharge Clinical Impression: Dermatitis due to plants, including poison sarah, sumac, and oak Patient Disposition: [facility]
== END 2021-09-12 19:36 | disposition home or self-care (01) ==
PROVIDERS: Emergency Provider Nurse Practitioner Family
DX: L25.5 Unspecified contact dermatitis due to plants, except food (principal); F17.200 Nicotine dependence, unspecified, uncomplicated
CPT/HCPCS: 99213; G0463

== ENCOUNTER 2022-06-25 08:42 | Emergency (ER) | payer OTHER, SELFPAY ==
--- NOTE | 2022-06-25 08:45 | ED.GENADULT ---
HPI - General Adult General Chief complaint: Nausea/Vomiting/Diarrhea Stated complaint: Abdominal Pain/Nausea/ Vomiting/Diarrhea Time Seen by Provider: 06/25/22 08:47 Source: patient, RN notes reviewed and old records reviewed Mode of arrival: ambulatory Limitations: no limitations History of Present Illness HPI narrative: [age] year female presents to the [facility] with complaints of abdominal cramping, 3 episodes of vomiting, nausea and 1 episode of diarrhea since 6:00 a.m. this morning, 3 hours. Denies any specific pain Denies any urinary symptoms Denies any chances of Onset (ago): hour(s) (3) Related Data Allergies Allergy/AdvReac Type Severity Reaction Status Date / Time No Known Allergies Allergy Verified 01/25/21 14:34 Review of Systems Review of Systems: All systems reviewed & are unremarkable except as noted in HPI and below Constitutional: Constitutional: Reports no additional constitutional complaints Eyes: Eyes: Reports no additional eye complaints ENT: Reports system reviewed and no additional complaints, except as documented Cardiovascular: Cardiovascular: Reports no additional cardiovascular complaints, Denies chest pain and Denies dyspnea Respiratory: Respiratory: Reports no additional respiratory complaints, Denies chest congestion, Denies cough and Denies dyspnea Gastrointestinal: Gastrointestinal: Reports as per HPI, Denies abdominal pain, Reports GI cramping, Reports diarrhea, Reports nausea, Reports vomiting and Denies hematemesis Genitourinary: Genitourinary: Reports no additional female genitourinary complaints Musculoskeletal: Musculoskeletal: Reports no additional musculoskeletal complaints Integumentary/Breasts: Skin/Breast: Reports system reviewed and no additional complaints, except as docu Neurologic: Reports system reviewed and no additional complaints, except as documented Psychiatric: Psychiatric: Reports no additional psychiatric complaints Allergic/Immunologic: Allergic/Immunologic: Reports no additional allergic/immunologic complaints [facility] Past Medical History Medical History Patient denies medical problems Surgical History Surgical History History of repair of ACL Social History Social History Smoking status: Current every day smoker Alcohol intake: former Substance use: never Substance use type: marijuana Gender identity (if verbalized by the patient): Female Comments At the time of my signature, I reviewed and agree with the nursing past medical, surgical, social, and family history. There is no relevant family history pertinent to the patient complaint. Exam Const: General: cooperative, healthy appearing, comfortable, no acute distress, well developed, alert and well nourished Nutritional Appearance: well nourished and overweight Orientation/consciousness: patient oriented x3 Limitations: no limitations HENMT: Head: normal to inspection Ears: hearing grossly normal bilaterally and external ears normal Face/Nose/Sinus: Normal external nose present, Normal nares present, Normal nasal mucous membranes and turbinates present and normal facial exam Face and sinus: normal facial exam Mouth: Yes Normal oral and palatal mucosa present, Yes lip normal and Yes moist mucous membranes Throat: posterior oropharynx normal and uvula midline Eyes: General: appearance normal, both eyes and all related structures Alignment and Position: alignment normal Periorbital: periorbital findings normal Pupils: Equal, round and reactive pupils present EOM: EOMs intact bilaterally Neck: Neck: normal visual inspection, full ROM, no lymphadenopathy and no meningeal signs Chest: Chest palpation & inspection: normal inspection of the chest Resp: Effort & Inspection: normal respiratory effort and able
[2022-06-25 08:47] VITALS: BP 123/67; PULSE 71; RESP 16; TEMP 37.2; O2SAT 99
[2022-06-25 08:52] VITALS: BP 123/67; PULSE 71; RESP 16; TEMP 37.2; O2SAT 99
== END 2022-06-25 09:09 | disposition home or self-care (01) ==
PROVIDERS: Emergency Provider Nurse Practitioner
DX: K52.9 Noninfective gastroenteritis and colitis, unspecified (principal); F17.200 Nicotine dependence, unspecified, uncomplicated
CPT/HCPCS: 99213; G0463

== ENCOUNTER 2022-08-09 18:53 | Emergency (ER) | payer OTHER, SELFPAY ==
[2022-08-09] VITALS (25 sets, daily range): BP systolic 123–136; BP diastolic 83–93; PULSE 76–91; RESP 19–28; TEMP 36.4–36.6; O2SAT 91–100
--- NOTE | ~2022-08-09 | XR_ITS ---
EXAMINATION: XR chest 1V portable Exam Date/Time: 08/09/2022 19:06 CDT HISTORY: AMS Comparison: None. RESULT: Lines, tubes, and devices: None. Lungs and pleura: Clear. Cardiomediastinal silhouette: Normal. Other: No acute osseous or upper abdominal finding. IMPRESSION: No acute cardiopulmonary process. Reviewed, dictated and finalized at location K.
--- NOTE | ~2022-08-09 | XR_ITS ---
EXAMINATION: XR wrist LT min 3V DATE: 08/10/2022 00:45 INDICATION: Left wrist pain TECHNIQUE: Posteroanterior, ulnar deviation, oblique, and lateral views of the left wrist were obtain ed. COMPARISON: 08/25/2007 FINDINGS: No fracture, dislocation, or subluxation. The bones, soft tissues, and joint spaces are nor mal. IMPRESSION: 1. No acute osseous abnormality. Reviewed, dictated and finalized at location A.
--- NOTE | ~2022-08-09 | CT_ITS ---
EXAMINATION: CT cervical spine wo con DATE: 08/09/2022 20:23 INDICATION: fall,+ETOH TECHNIQUE: Computed tomography (CT) of the cervical spine was performed without intravenous contrast. Automated exposure control and iterative reconstruction technique were employed. The dose-length pro duct was 514.65 mGy-cm. COMPARISON: None. FINDINGS: Vertebral Body Alignment: Intact. Reversed lordosis centered at C4-5. Craniocervical and atlantoaxial alignment: No significant degenerative change. Alignment intact. Osseous structures/fracture: No evidence of a lytic or blastic process in the visualized spine. No e vidence of acute fracture. . Cervical soft tissues: The paraspinal soft tissues planes are maintained. Aerated secretions in the t rachea Degenerative changes: No significant degenerative changes. IMPRESSION: No acute fracture or traumatic malalignment in the cervical spine. Tracheal secretions. Reviewed, dictated and finalized at location K.
--- NOTE | ~2022-08-09 | XR_ITS ---
EXAM: XR_KNEE1-2VRT_CR, XR_KNEE1-2VLT_CR DATE: 08/09/2022 19:55 HISTORY: injury . COMPARISON: None available. FINDINGS: Normal mineralization. No fracture or dislocation. No lytic or blastic lesion. Joint space s are maintained. No erosion or periosteal change. Amorphous calcific densities in the distal aspect of the right patellar tendon. Prior left ACL repair. Deep sulcus sign on the right. Hyperextension of the right tibia relative to the femur. IMPRESSION: No acute osseous fracture detected in the bilateral knees. Deep sulcus sign in the right knee, may represent acute or chronic ACL injury. Recommend nonemergent, outpatient MR of the knee for further evaluation. Calcific patellar tendinitis on the right. Alternatively the densities could represent soft tissue de bris if there is overlying soft tissue injury. Reviewed, dictated and finalized at [facility]. IMPRESSION: No acute osseous fracture detected in the bilateral knees. Deep sulcus sign in the right knee, may represent acute or chronic ACL injury. Recommend nonemergent, outpatient MR of the knee for further evaluation. Calcific patellar tendinitis on the right. Alternatively the densities could re present soft tissue debris if there is overlying soft tissue injury.
--- NOTE | ~2022-08-09 | CT_ITS ---
EXAMINATION: CT brain wo con DATE: 08/09/2022 20:19 INDICATION: AMS, fall . TECHNIQUE: Computed tomography (CT) of the head was performed without intravenous contrast. The mA wa s adjusted according to patient size. Iterative reconstruction technique was employed. The dose-lengt h product was 605.33 mGy-cm. COMPARISON: None. FINDINGS: No acute intracranial hemorrhage or extra-axial fluid collection. No hydrocephalus, mass, or herniation. No acute ischemic infarct. Unremarkable dural venous sinus attenuation. No acute osseous abnormality. Ethmoid and right maxillary mucosal thickening. Air-fluid levels/aerated secretions in the right maxi llary sinus aerated spaces are clear. IMPRESSION: No acute intracranial process. Paranasal sinus findings may represent acute sinusitis or mucosal hemo rrhage. Reviewed, dictated and finalized at location K. IMPRESSION: No acute intracranial process. Paranasal sinus findings may represent acute sin usitis or mucosal hemorrhage.
--- NOTE | 2022-08-09 19:01 | ECG_ITS ---
Measurements Intervals [place] Rate: 87 P: 52 NV: 144 QRS: 50 QRSD: 81 T: -7 QT: 355 QTc: 428 Interpretive Statements SINUS RHYTHM WITH SINUS ARRHYTHMIA BASELINE ARTIFACT- II, III, AVR, AVL, AVF, V3-V6 NORMAL ECG NO PREVIOUS ECG AVAILABLE FOR COMPARISON Electronically Signed On 08-10-2022 7:24:04 CDT by Yann Shaw D.O.
[2022-08-09 19:24] LABS: Glucose Point of Care 91 mg/dl (65-105)
[2022-08-09 19:33] LABS: Basophils Absolute Auto 0.2 K/mm3 (0.0-0.1); Basophils Percent Auto 1.2 % (0.2-1.2); Eosinophils Absolute Auto 0.9 K/mm3 (0-0.3); Hematocrit 35.3 % (37.0-47.0); Hemoglobin 11.3 g/dL (12.0-15.0); Immature Granulocyte Absolute 0.06 K/mm3 (0.00-0.031); Immature Granulocyte Percent A 0.4 % (0-0.5); Lymphocytes Absolute Auto 3.46 K/mm3 (0.9-3.2); Lymphocytes Percent Auto 23.5 % (18.3-44.2); Mean Corpuscular Hemoglobin 27.7 pg (26-34); Mean Corpuscular Volume 86.5 fl (80-100); Mean Platelet Volume 10.5 fl (7.4-10.4); Monocytes Percent Auto 6.5 % (2.6-8.5); Neutrophils Absolute Auto 9.2 K/mm3 (1.3-6.7); Neutrophils Percent Auto 62.4 % (45.5-73.1); Platelet Count Result 278 k/mm3 (150-375); Red Blood Count 4.08 M/mm3 (4.2-5.4); Red Cell Distribution Width 13.7 % (11.5-14.5); White Blood Count 14.7 K/mm3 (4.5-10.0)
[2022-08-09 19:34] LABS: Alveolar/Arterial O2 Gradient 28.4 mmHg; Base Excess ABG 2.9 mEq/l (+/-2.0); Fractional Inspired Oxygen 21 %; HCO3 ABG 24.8 mEq/l (22.0-26.0); Oxygen Content ABG 16.8 %vol (16.0-22.0); Oxygen Saturation ABG 97.5 % (95.0-100.0); Oxyhemoglobin 94.4 % THb (90.0-100.0); PO2 ABG 85.4 mmHg (80.0-100.0); PO2 FiO2 Ratio Arterial Blood 4.07 %; Total Hemoglobin 12.6 g/dL (12.0-18.0)
[2022-08-09 19:36] LABS: Site Drawn RIGHT RADIAL; pH ABG 7.536 (7.350-7.450)
[2022-08-09 19:37] LABS: Modified Allen's Test Pass
[2022-08-09] MEDS: LACTATED RINGERS 1,000 ML 999 ML IV CONT (19:39)
[2022-08-09 19:40] LABS: Lactic Acid Reflex 1.1 mmol/L (0.7-2.0)
--- NOTE | 2022-08-09 19:40 | ED.AMS ---
HPI - Altered Mental Status General Chief Complaint: Altered Mental Status Stated Complaint: ams Time Seen by Provider: 08/09/22 19:00 History of Present Illness HPI narrative: 31-year-old female per EMS report had been escorted out of a bar for being too intoxicated, and police escorted her home, she then ran down the hill and fell, she had reported to EMS that she had just smoked some marijuana earlier denies any other drug use. She had been quite obtunded and was given 2 mg of Narcan by EMS, actually she did become more alert but was still quite extremely confused Related Data Allergies Allergy/AdvReac Type Severity Reaction Status Date / Time No Known Allergies Allergy Verified 01/25/21 14:34 Review of Systems Review of Systems: ROS unobtainable: Yes unobtainable due to medical condition and unobtainable due to mental status PMFSH Past Medical History Medical History Patient denies medical problems Surgical History Surgical History History of repair of ACL Social History Social History Smoking status: Current every day smoker Alcohol intake: former Substance use: never Substance use type: marijuana Gender identity (if verbalized by the patient): Female Exam Narrative: EXAMINATION OF ORGAN SYSTEMS/BODY AREAS: Constitutional: Vital signs per nursing GENERAL: Eyes closed, flailing around every so often HEAD: No obvious signs of head trauma. EYES: EOMI, conjunctiva normal ENT: Mucosal drainage from nares LUNGS: Loud respirations, CTAB HEART: [Regular rate and rhythm] ABD: [Soft], [nontender to palpation] EXT: Thrashing all extremities, does respond to painful stimuli; large bruising to left knee, skin avulsion and abrasions to right knee SKIN: See above NEURO: [No obvious focal neurologic deficits but not alert nor answering questions or following commands.] Course Vital Signs Vital signs: Vital Signs Pulse Rate 89 08/09/22 18:55 Respiratory Rate 24 H 08/09/22 18:55 Pulse Oximetry 95 08/09/22 18:55 Temperature 98.1 F 08/10/22 01:26 Pulse Rate 77 08/10/22 01:26 Respiratory Rate 19 08/10/22 01:26 Blood Pressure 129/87 08/10/22 01:26 Pulse Oximetry 98 08/10/22 01:26 MDM - Altered Mental Status MDM Narrative Medical decision making narrative: 31-year-old female presenting with altered mental status, upon arrival she was thrashing, nonresponsive to commands or voice, she did withdraw to painful stimuli, she is protecting her airway. Extensive bruising to bilateral knees with large abrasions to right knee, per EMS report she had admitted to smoking something prior, and they had administered Narcan which improved her AMS. She is immediately placed on monitors, blood draw obtaining IV access, stat blood sugar obtained which was normal, at this time I do not feel that further Narcan would be helpful as she is protecting her airway, with spontaneous respirations and normal oxygenation, I am concerned for possible head trauma or other overdose causing her symptoms. She is given small dose of Ativan to stay still for CT. CT head reviewed independently by myself and I did not note any obvious large intracranial bleed, CT head and C-spine per radiology does not show any obvious acute abnormalities. Labs notable for leukocytosis of 14.7, ABG showing high pH, lactate is normal and so is her CMP and TSH, normal urinalysis, UDS does show positive cocaine, we are unable to screen for fentanyl here but I do suspect given her symptoms that she may have had cocaine and fentanyl toxicity. Her knee is dressed and clean, no obvious fractures on x-ray of knees, chest x-ray my independent interpretation does not show any obvious acute abnormality. At this time, she has woken up spontaneously, throughout the 4 hours she was here she never desa
[2022-08-09 19:41] LABS: Acetaminophen < 10 ug/mL (10-30); Ethanol < 10 mg/dL (<10); Salicylate < 1.0 mg/dL (2-20)
[2022-08-09 19:42] LABS: Alanine Aminotransferase 19 U/L (6-35); Albumin Level 4.3 g/dL (3.5-5.1); Alkaline Phosphatase 72 U/L (38-126); Anion Gap 8 mmol/L (8-16); Aspartate Amino Transferase 25 U/L (14-36); Bilirubin,Total 0.5 mg/dL (0.2-1.3); Blood Urea Nitrogen 9 mg/dL (7-17); Carbon Dioxide 29 mmol/L (22-30); Chloride 103 mmol/L (98-107); Estimated Glomerular Filt Rate > 60; Glucose 103 mg/dL (65-110); Potassium 3.1 mmol/L (3.4-5.0); Sodium 140 mmol/L (137-145)
[2022-08-09 19:51] LABS: Appearance Urine Clear (Clear); Bacteria Urine None Seen /hpf; Bilirubin Urine Negative (Negative); Blood Urine Negative (Negative); Color Urine Yellow (Yellow); Glucose Urine UA Negative (Negative); Ketones Urine Trace mg/dL (Negative); Leukocyte Esterase Ur Trace LEU/UL (Negative); Need Manual Microscopic Reviewed; Nitrate Urine Negative (Negative); Non Pathogenic Casts 0-2; Protein Urine Trace mg/dL (Negative); RBC Urine 0-2 /hpf (0-2); Specific Grav Ur 1.024 (1.001-1.035); Squamous Epithelial Cell Urine None seen /hpf (Few); WBC Urine 0-5 /hpf; pH Urine 6.5 (5.0-9.0)
[2022-08-09] MEDS: LORazepam INJ (*CRX) 2 MG/ML VIAL 1 MG IV PUSH (19:51)
[2022-08-09] MEDS: TETANUS,DIPHTHERIA,AC PERTUSSIS ADULT (0.5 ML) BOOSTRIX IM (19:52)
[2022-08-09 19:54] LABS: Add Urine Microscopic? YES
[2022-08-09 19:56] LABS: Barbiturate Screen Urine Negative (Negative); Benzodiazepines Screen Urine Positive (Negative)
[2022-08-09 19:57] LABS: Amphetamine Screen Urine Negative (Negative); Cannabinoid Screen Urine Positive (Negative); Methadone Screen Urine Negative (Negative); Opiate Screen Urine Negative (Negative); Phencyclidine Screen Urine Negative (Negative)
[2022-08-09 20:13] LABS: Thyroid Stimulating Hormone 0.907 uIU/mL (0.465-4.680)
[2022-08-09 20:15] LABS: Cocaine Screen Urine Positive (Negative)
--- NOTE | 2022-08-09 23:57 | PC.NURSE ---
Patient awoke and was able to tell staff where she was, the current date, and her . Patient unaware of why she is here.
[2022-08-10 00:01] VITALS: O2SAT 92
--- NOTE | 2022-08-10 01:10 | PC.NURSE ---
Patients mother was called and mother will be coming to pickup the patient
[2022-08-10 01:26] VITALS: BP 129/87; PULSE 77; RESP 19; TEMP 36.7; O2SAT 98
== END 2022-08-10 01:27 | disposition home or self-care (01) ==
PROVIDERS: Emergency Provider Emergency Medicine
DX: R41.82 Altered mental status, unspecified (principal); F14.10 Cocaine abuse, uncomplicated; S80.211A Abrasion, right knee, initial encounter; S80.02XA Contusion of left knee, initial encounter; Z23 Encounter for immunization; F17.200 Nicotine dependence, unspecified, uncomplicated; M76.51 Patellar tendinitis, right knee; W10.2XXA Fall (on)(from) incline, initial encounter
CPT/HCPCS: 36415; 36600; 70450; 71045; 72125; 73110; 73560; 80053; 80307; 81001; 81025; 82805; 82948; 83605; 84443; 85025; 90471; 90715; 93005; 96361; 96374; 99284; J2060; J7120

== ENCOUNTER 2022-08-15 08:14 | Emergency (ER) | payer OTHER, SELFPAY ==
[2022-08-15 08:19] VITALS: BP 157/108; PULSE 93; RESP 16; TEMP 36.8; O2SAT 100
[2022-08-15 08:24] VITALS: BP 157/108; PULSE 93; RESP 16; TEMP 36.8; O2SAT 100
--- NOTE | 2022-08-15 08:30 | ED.WOUNDLAC ---
HPI - Wound/Laceration General Chief Complaint: Wound/Laceration Stated Complaint: Wound Check Time Seen by Provider: 08/15/22 08:30 Source: patient Mode of arrival: ambulatory Limitations: no limitations History of Present Illness HPI narrative: 31-year-old female presents with abrasion to right knee. Patient is concerned for infection. states she fell while packing cooler either on August 12 or . States that she clean the wound with rubbing alcohol. Woke up at 3:00 a.m. this morning pain and states wound had an odor to it. States that she cleaned it really well and they came here this morning for antibiotics. Patient ambulatory with steady gait. Afebrile. All systems reviewed and negative except as noted above. Related Data Allergies Allergy/AdvReac Type Severity Reaction Status Date / Time No Known Allergies Allergy Verified 08/15/22 08:23 Review of Systems Review of Systems: CONSTITUTIONAL: Denies fever, chills, or sweats. EYES: Denies visual changes, redness, or discharge. ENT: Denies rhinorrhea, congestion, sore throat, or otalgia. CARDIOVASCULAR: Denies chest pain, palpitations, or edema. RESPIRATORY: Denies cough or dyspnea. GASTROINTESTINAL: Denies abdominal pain, nausea, vomiting, or diarrhea. GENITOURINARY: Denies dysuria or hematuria. SKIN: Denies rash or itching. Reports abrasion to right knee. MUSCULOSKELETAL: Denies back pain, joint pain, or myalgia. NEUROLOGIC: Denies headache, numbness, or weakness. PSYCHIATRIC: Denies anxiety or depression. All other systems reviewed are negative, except as documented in HPI. PMFSH Past Medical History Medical History Patient denies medical problems Surgical History Surgical History History of repair of ACL Social History Social History Smoking status: Current every day smoker Alcohol intake: former Substance use: never Substance use type: marijuana Gender identity (if verbalized by the patient): Female Comments At time of signature, agree with nursing past medical, surgical, social and family history. There is no relevant family history pertinent to the presenting complaint. Exam Narrative: GENERAL: This is a well-nourished, well-developed patient, in no apparent distress. HEAD: normocephalic, atraumatic. EYES: PERRL. Sclera clear/white. Vision is grossly intact. EARS: External ears normal NOSE: External nose normal NECK: Neck supple, non-tender without lymphadenopathy, masses or thyromegaly. CARDIOVASCULAR: Regular rate and rhythm without murmurs, gallops, or rubs. RESPIRATORY: Clear to auscultation. Breath sounds equal bilaterally. No wheezes, rales, or rhonchi. SKIN: warm, Dry, intact with no suspicious lesions or rash, good texture and turgor. 5x7cm abrasion to R knee with greenish-yellow scant drainage. no odor. tender on palpation. mild swelling with erythema. no fluctuance. NEURO: awake, alert, and oriented to person, place and time. There were no obvious focal neurologic abnormalities. EXTREMITIES: No joint tenderness, effusion, or edema noted. Course Course Level of Care: Express Care Visit Vital Signs Vital signs: Vital Signs Temperature 36.8 C 08/15/22 08:19 Pulse Rate 93 08/15/22 08:19 Respiratory Rate 16 08/15/22 08:19 Blood Pressure 157/108 H 08/15/22 08:19 Pulse Oximetry 100 08/15/22 08:19 Oxygen Delivery Room Air 08/15/22 08:19 Temperature 36.8 C 08/15/22 08:24 Pulse Rate 74 08/15/22 08:42 Respiratory Rate 16 08/15/22 08:24 Blood Pressure 150/107 H 08/15/22 08:42 Pulse Oximetry 100 08/15/22 08:24 Oxygen Delivery Room Air 08/15/22 08:24 Reviewed MDM - Wound/Laceration MDM Narrative Medical decision making narrative: Patient is aware of diagnosis, understands and agrees to treatment plan. Ever
[2022-08-15 08:42] VITALS: BP 150/107; PULSE 74
[2022-08-15] MEDS: TETANUS,DIPHTHERIA,AC PERTUSSIS ADULT (0.5 ML) BOOSTRIX IM (08:48)
== END 2022-08-15 08:55 | disposition home or self-care (01) ==
PROVIDERS: Emergency Provider Nurse Practitioner Family
DX: S80.211A Abrasion, right knee, initial encounter (principal); L08.9 Local infection of the skin and subcutaneous tissue, unspecified; W19.XXXA Unspecified fall, initial encounter; Z23 Encounter for immunization; Z87.891 Personal history of nicotine dependence
CPT/HCPCS: 90471; 90715; 99213; G0463

== ENCOUNTER 2022-12-27 19:14 | Emergency (ER) | payer OTHER, SELFPAY ==
--- NOTE | ~2022-12-27 | XR_ITS ---
EXAMINATION: XR shoulder LT min 2V DATE: 12/27/2022 19:33 INDICATION: Diffuse left shoulder pain post injury TECHNIQUE: AP internally and externally rotated, AP oblique externally rotated and transscapular Y vi ews of the affected shoulder were obtained. COMPARISON: None FINDINGS: Normal alignment. No fracture. Glenohumeral joint is normal. Acromioclavicular joint is normal. Soft tissues are unremarkable. Visual is portions of the lungs are clear. IMPRESSION: Negative left shoulder radiographs. Reviewed, dictated and finalized at location A. 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
--- NOTE | 2022-12-27 19:20 | ED.GENADULT ---
HPI - General Adult General Chief complaint: Extremity Injury, Upper Stated complaint: shoulder problem Time Seen by Provider: 12/27/22 19:26 Source: patient, RN notes reviewed and old records reviewed Mode of arrival: ambulatory Limitations: no limitations History of Present Illness HPI narrative: 32-year-old female presents to the [facility] with complaints of left shoulder pain. Patient reports that she was wrestling with her cousin, her cousin hit her shoulder forward. States that it felt it was ?dislocated. ? States that her mom gave her ?a pain pill. ? Pain with movement. 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 No pain with elbow or wrist movement. Capillary refill under 2 seconds. Sensation intact Onset (ago): hour(s) (About 2 hours) Related Data Allergies Allergy/AdvReac Type Severity Reaction Status Date / Time No Known Allergies Allergy Verified 12/27/22 19:17 Review of Systems Review of Systems: All systems reviewed & are unremarkable except as noted in HPI and below Constitutional: Constitutional: Reports no additional constitutional complaints Eyes: Eyes: Reports no additional eye complaints ENT: Reports system reviewed and no additional complaints, except as documented Cardiovascular: Cardiovascular: Reports no additional cardiovascular complaints, Denies chest pain and Denies dyspnea Respiratory: Respiratory: Reports no additional respiratory complaints, Denies chest congestion, Denies cough and Denies dyspnea Gastrointestinal: Gastrointestinal: Reports no additional gastrointestinal complaints, Denies abdominal pain, Denies nausea and Denies vomiting Musculoskeletal: Musculoskeletal: Reports as per HPI and Reports arthralgias (Left anterior shoulder) Integumentary/Breasts: Skin/Breast: Reports system reviewed and no additional complaints, except as docu Neurologic: Reports system reviewed and no additional complaints, except as documented Psychiatric: Psychiatric: Reports no additional psychiatric complaints Allergic/Immunologic: Allergic/Immunologic: Reports no additional allergic/immunologic complaints PMFSH Past Medical History Medical History Patient denies medical problems Surgical History Surgical History History of repair of ACL Social History Social History Smoking status: Current every day smoker Alcohol intake: former Substance use: never Substance use type: marijuana Gender identity (if verbalized by the patient): Female Comments At the time of my signature, I reviewed and agree with the nursing past medical, surgical, social, and family history. There is no relevant family history pertinent to the patient complaint. Exam Const: General: cooperative, healthy appearing, no acute distress, well developed, alert, uncomfortable and well nourished Nutritional Appearance: well nourished Orientation/consciousness: patient oriented x3 Limitations: no limitations HENMT: Head: normal to inspection Ears: hearing grossly normal bilaterally and external ears normal Face/Nose/Sinus: Normal external nose present, Normal nares present, Normal nasal mucous membranes and turbinates present, normal facial exam and face symmetric Face and sinus: normal facial exam and face symmetric Eyes: General: appearance normal, both eyes and all related structures Alignment and Position: alignment normal Periorbital: periorbital findings normal Pupils: Equal, round and reactive pupils present EOM: EOMs intact bilaterally Neck: Neck: normal visual inspection, full ROM, no lymphadenopathy and no meningeal signs Chest: Chest palpation & inspection: normal inspection of the chest Resp: Effort & Inspection: normal respiratory effort and able to speak in complete sentences Cardio: Rate: regular rate
[2022-12-27 19:23] VITALS: BP 168/109; PULSE 103; RESP 16; TEMP 37.1; O2SAT 99
== END 2022-12-27 19:56 | disposition home or self-care (01) ==
PROVIDERS: Emergency Provider Nurse Practitioner
DX: S46.912A Strain of unspecified muscle, fascia and tendon at shoulder and upper arm level, left arm, initial encounter (principal); S40.012A Contusion of left shoulder, initial encounter; W50.0XXA Accidental hit or strike by another person, initial encounter; Y93.83 Activity, rough housing and horseplay; F17.210 Nicotine dependence, cigarettes, uncomplicated
CPT/HCPCS: 73030; 99213; G0463

== ENCOUNTER 2023-06-16 13:44 | Emergency (ER) | payer OTHER, SELFPAY ==
[2023-06-16 13:48] VITALS: BP 141/92; PULSE 90; RESP 16; TEMP 36; O2SAT 98
--- NOTE | 2023-06-16 16:44 | PC.NURSE ---
Pt left prior seen the provider.
== END 2023-06-16 17:53 | disposition left against medical advice (07) ==
LOC: ANHED 16:50
DX: N93.9 Abnormal uterine and vaginal bleeding, unspecified (principal)
CPT/HCPCS: 99199

== ENCOUNTER 2024-02-24 11:35 | Emergency (ER) | payer BC, SELFPAY ==
--- NOTE | 2024-02-24 11:45 | ED.GENADULT ---
HPI - General Adult General Chief complaint: Neck Pain/Injury Stated complaint: left side neck/shoulder pain/tingling Time Seen by Provider: 02/24/24 12:00 Source: patient, RN notes reviewed and old records reviewed Mode of arrival: ambulatory Limitations: no limitations Related Data Home Medications ?Medication ?Instructions ?Recorded ?Confirmed ?Last Taken ?Type No Home Medications 02/24/24 02/24/24 Unknown History Allergies Allergy/AdvReac Type Severity Reaction Status Date / Time No Known Allergies Allergy Verified 02/24/24 11:39 Review of Systems Review of Systems: All systems reviewed & are unremarkable except as noted in HPI and below Constitutional: Constitutional: Reports no additional constitutional complaints ENT: Reports system reviewed and no additional complaints, except as documented Cardiovascular: Cardiovascular: Reports no additional cardiovascular complaints, Denies chest pain and Denies dyspnea Respiratory: Respiratory: Reports no additional respiratory complaints, Denies chest congestion, Denies cough and Denies dyspnea Musculoskeletal: Musculoskeletal: Reports no additional musculoskeletal complaints Integumentary/Breasts: Skin/Breast: Reports system reviewed and no additional complaints, except as docu PMFSH Past Medical History Medical History Patient denies medical problems Surgical History Surgical History History of repair of ACL Social History Social History Smoking status: Current every day smoker Alcohol intake: former Substance use: never Substance use type: marijuana Gender identity (if verbalized by the patient): Female Comments At the time of my signature, I reviewed and agree with the nursing past medical, surgical, social, and family history. There is no relevant family history pertinent to the patient complaint. Exam Const: General: cooperative, healthy appearing, comfortable, no acute distress, well developed, alert and well nourished Nutritional Appearance: well nourished Orientation/consciousness: patient oriented x3 Limitations: no limitations HENMT: Head: normal to inspection Eyes: General: appearance normal, both eyes and all related structures Alignment and Position: alignment normal Neck: Neck: normal visual inspection, full ROM, no lymphadenopathy and no meningeal signs Chest: Chest palpation & inspection: normal inspection of the chest Resp: Effort & Inspection: normal respiratory effort and able to speak in complete sentences Auscultation: clear to auscultation bilaterally, no crackles, no rales, no rhonchi and no wheezes Cardio: Rate: regular rate Skin: General skin exam: normal color and no rashes or lesions noted Neuro: General: patient oriented x3, gait normal, moves all extremities and no meningeal signs Cognition (Neuro): normal cognition Speech: normal speech Gait exam (Neuro): Normal gait present Extrem: General: normal to inspection, full ROM, capillary refill normal and normal gait Psych: Appearance: grossly normal and well kempt Mental Status: mental status grossly normal Speech and movement: Normal speech and movement present and Clear speech present Affect: normal affect Attitude: cooperative Course Course Level of Care: Express Care Visit Vital Signs Vital signs: Vital Signs Temperature 97.6 F 02/24/24 11:48 Pulse Rate 71 02/24/24 11:48 Respiratory Rate 16 02/24/24 11:48 Blood Pressure 145/96 H 02/24/24 11:48 Pulse Oximetry 99 02/24/24 11:48 Oxygen Delivery Room Air 02/24/24 11:48 Temperature 97.6 F 02/24/24 11:48 Pulse Rate 71 02/24/24 11:48 Respiratory Rate 16 02/24/24 11:48 Blood Pressure 145/96 H 02/24/24 11:48 Pulse Oximetry 99 02/24/24 11:48 Oxygen Delivery Room Air 02/24/24 11:48 Reviewed Medical Decision Making MDM Narrative Medical decision making narrative: Patient sitting comfortably in exam room. Nontoxic, vitals stable. Patient in no acute distress Patient presents for Discharge instructions reviewed with patient, as well as provided in writing per nursing staff. The instructions also include specific and strict return/GO TO THE ER as well as f/u information. All questions have been answered, and the patient deny any further questions with discharge and discharge plan. Some parts of this dictation were generated by voice recognition software and may contain typographical and/or grammatical inaccuracies. Medical Records Medical records reviewed: Yes I reviewed the external patient's medical records. Vital Signs Vital Signs: Vital Signs Temperature 97.6 F 02/24/24 11:48 Pulse Rate 71 02/24/24 11:48 Respiratory Rate 16 02/24/24 11:48 Blood Pressure 145/96 H 02/24/24 11:48 Pulse Oximetry 99 02/24/24 11:48 Oxygen Delivery Room Air 02/24/24 11:48 Temperature 97.6 F 02/24/24 11:48 Pulse Rate 71 02/24/24 11:48 Respiratory Rate 16 02/24/24 11:48 Blood Pressure 145/96 H 02/24/24 11:48 Pulse Oximetry 99 02/24/24 11:48 Oxygen Delivery Room Air 02/24/24 11:48 Reviewed Lab Data Lab results reviewed: Yes I reviewed the patient's lab results. Labs: Reviewed Critical Care Time Critical Care Time Critical Care Time: No Discharge Plan Discharge Patient Language: Citizen Of The [place] Prescriptions: No Action No Home Medications Follow-up/Referrals: PHYSICIAN,NON DESTRUCTIVE TESTING TECHNICIAN [Primary Care Provider] -
[2024-02-24 11:48] VITALS: BP 145/96; PULSE 71; RESP 16; TEMP 36.4; O2SAT 99
--- NOTE | 2024-02-24 12:26 | PC.NURSE ---
patient was in exam room for ~ 20 minutes when RN and Provider went to see patient. Patient left from the exam room/Express Care without explanation and being seen.
== END 2024-02-24 12:36 | disposition left against medical advice (07) ==
DX: Z53.21 Procedure and treatment not carried out due to patient leaving prior to being seen by health care provider (principal)
CPT/HCPCS: 99199

== ENCOUNTER 2024-06-11 16:49 | Emergency (ER) | payer MEDICAID, SELFPAY ==
[2024-06-11 17:08] VITALS: BP 203/126; PULSE 76; RESP 18; TEMP 36.8; O2SAT 100
--- NOTE | 2024-06-11 17:47 | ED.DENTAL ---
HPI - Dental/Oral General Chief complaint: Dental/Oral Stated complaint: Right upper dental pain-broken tooth Time Seen by Provider: 06/11/24 17:16 History of Present Illness HPI Narrative: 33-year-old female presents emergency department for right upper dental pain for the past week, worsening over the past day. Patient states she had a hole in her right upper molar in police for the tooth is no broken off. She states the pain radiates into her jaw and into her right ear. She reports a low-grade fever of 100? this morning. States she has been calling around dentist's office and has an appointment in 2 weeks but cannot wait that long. She has took ibuprofen around 1:00 p.m. today without improvement. Denies difficulty breathing or swallowing. Patient also found to be hypertensive upon arrival but is in a significant amount of pain. She denies history of hypertension, chest pain shortness of breath vision changes. Related Data Allergies Allergy/AdvReac Type Severity Reaction Status Date / Time No Known Allergies Allergy Verified 06/11/24 17:09 Review of Systems Review of Systems: All systems reviewed & are unremarkable except as noted in HPI and below PMFSH Past Medical History Medical History Patient denies medical problems Surgical History Surgical History History of repair of ACL Social History Social History Smoking status: Current every day smoker Alcohol intake: former Substance use: never Substance use type: marijuana Gender identity (if verbalized by the patient): Female Exam Narrative: GENERAL: Well-appearing, well-nourished, and in no acute distress. HEAD: Normocephalic, atraumatic. EYES: PERRLA and EOMI. ENT: Nares clear, no rhinorrhea or epistaxis. Mucous membranes moist. Caries throughout, tenderness to gumline of tooth #3 and 4 with mild edema to the gums, no fluctuance or induration, no spontaneous drainage. No edema or erythema to the face. Bilateral TMs are angel nonbulging with normal canals. No trismus. Posterior pharynx erythema or edema, no exudates or uvular deviation. Patient is tolerating secretions, no airway compromise NECK: Supple. CHEST: Clear to auscultation. No respiratory distress. HEART: Regular rate and rhythm. No murmur heard. Normal peripheral pulses. EXTREMITIES: Normal range of motion. No edema. SKIN: Warm, dry, no rash. NEURO: No focal deficits. Alert and oriented x3 Course Vital Signs Vital signs: Vital Signs Temperature 98.3 F 06/11/24 17:08 Pulse Rate 76 06/11/24 17:08 Respiratory Rate 18 06/11/24 17:08 Blood Pressure 203/126 H 06/11/24 17:08 Pulse Oximetry 100 06/11/24 17:08 Temperature 98.3 F 06/11/24 17:08 Pulse Rate 69 06/11/24 18:47 Respiratory Rate 18 06/11/24 18:47 Blood Pressure 188/129 H 06/11/24 18:47 Pulse Oximetry 99 06/11/24 18:47 MDM - Dental/Oral MDM Narrative Medical decision making narrative: 33-year-old female presents emergency department for right upper dental pain for the past week, worse over the past day. Patient is afebrile and nontoxic appearing. Exam is significant for dental caries and tenderness to the gum line of teeth #3 and 4. No evidence of periapical abscess. No evidence of deep space infection. No trismus. Patient is tolerating secretions. Triage vitals with hypertension of 203/126. Patient has no history of hypertension. She denies chest pain shortness of breath, vision changes or signs of hypertensive emergency. She does appear to be in pain. Suspect this is contributing to her elevated blood pressure today. Will provide IM Toradol, Custer 1st dose of Augmentin for dental infection and recheck BP. Patient re-evaluated blood pressure did improve. She was advised to keep a blood pressure log and follow-up with the PCP I referred you to. She is also given dentist referrals. Discussed strict ED return precautions. She is agreeable with the plan verbalized understanding. Discharged in stable condition. Discharge Plan Discharge Clinical Impression: Dental caries, Asymptomatic hypertension Patient Disposition: Home Condition: Stable Instructions: Antibiotic Form, Hypertension (ED), Toothache (ED) Additional Instructions: You were evaluated in the emergency department for dental pain. Screening please take antibiotics as directed. Take naproxen as needed for pain and Custer as needed for breakthrough pain. Follow-up closely with a dentist. Return to the emergency department if you develop a fever of 100.4 or greater, difficulty breathing or swallowing, or other concerning symptoms. You were also found to be hypertensive. Please check your blood pressure once daily and keep a log and follow-up with the PCP I referred you to. Return to the emergency department if you develop chest pain, shortness of breath, vision changes or other concerning symptoms. Patient Language: Burmese Prescriptions: New amoxicillin-pot clavulanate 875-125 mg tablet 1 tablet PO Q12H Qty: 14 0RF hydrocodone-acetaminophen 5-325 mg tablet 1 tablet PO Q8H PRN (Reason: pain) Qty: 14 0RF naproxen 500 mg tablet 500 mg PO BID PRN (Reason: pain) Qty: 20 0RF Follow-up/Referrals: PHYSICIAN,EXERCISE INSTRUCTOR [Primary Care Provider] - Mark Moses MD [Physician] - Stand Alone Forms: Work/School Release IP
[2024-06-11] MEDS: AMOXICILLIN/CLAVULANATE K 875-125 MG TAB 1 TABLET PO (18:11)
[2024-06-11] MEDS: HYDROcodone/acetaminophen (*CRX) 5-325 MG TABLET 1 TAB PO (18:11)
[2024-06-11] MEDS: KETOROLAC 30 MG/ML VIAL (*BKC) IM (18:11)
[2024-06-11 18:47] VITALS: BP 188/129; PULSE 69; RESP 18; O2SAT 99
[2024-06-11 19:28] VITALS: BP 178/125; PULSE 76; RESP 16; O2SAT 100
--- OUTSIDE RECORDS SUMMARY | 2024-06-12 14:58 | XMS_ITS | Clinical Summary ---
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 This disclosure is being madepursuant to the Care Everywhere program and may not contain all information available regarding this patient. Last updated 17.[facility] Allergies No known active allergies Medications * Be aware that medications may not be up to date on this document. Alwaysverify current medications with the patient. VENTOLIN HFA 108 (90 BASE) MCG/ACT inhaler 8 Active ketorolac (TORADOL) 10 MG tablet Take 1 tablet by mouth every 6 hours 20 tablet 9 Active Additional Information Patient not taking.Reported on 08/12/2018 ibuprofen (MOTRIN) 800 MG tablet Take 1 tablet by mouth every 8 hours as needed for Pain 90 tablet 9 Active HYDROcodone-carlos taminophen (NORCO) 5-325 MG tablet Take 1-2 tablets by mouth every 6 hours as needed for Pain 56 tablet 9 Active Additional Information Patient not taking.Reported on 08/12/2018 Active Problems Problem Noted Date Diagnosed Date Acute post-operative pain 07/02/2018 Bacterial vaginosis 05/05/2018 Candidiasis of vagina 05/05/2018 Chlamydial infection 05/05/2018 Herpes simplex 05/05/2018 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 Sprain of anterior cruciate ligament of left kne e 05/05/2018 Immunizations Immunization Administration Dates Next Due HEP A/HEP B 06/26/2015 Human Papilloma Virus Ninevalent Vaccine 016 INFLUENZA VACCINE 11/10/2017 TDAP (7yrs+) 08/04/2022 Social History Tobacco Use Types Packs/Day Years Used Date Smoking Tobacco: Every Day Cigarettes 0.5 10 Smokeless Tobacco: Never Alcohol Use Standard Drinks/Week Comments Yes 1 (1 standard drink = 0.6 oz pur e alcohol) Comments No Sex and Gender Information Value Date Recorded Sex Assigned at Not on file 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 Gender Identity Not on file Sexual Orientation Not on file Last Filed Vital Signs Vital Sign Reading Time Taken Comments Blood Pressure 112/65 08/04/2022 10:36 PM CDT Pulse 66 08/04/2022 10:36 PM CDT Temperature 36.9 C (98.5 F) 08/04/2022 10:36 PM CDT Respiratory Rate 17 08/04/2022 10:36 PM CDT Oxygen Saturation 100% 08/04/2022 10:36 PM CDT Inhaled Oxygen Concentration - - Weight 100.7 kg (222 lb) 07/02/2018 8:05 AM CDT Height 165.1 cm (5' 5 ) 07/02/2018 8:05 AM CDT Body Mass Index 36.94 07/02/2018 8:05 AM CDT Plan of Treatment Health Maintenance Due Date Last Done Comments PAP SMEAR 1989 HIV SCREENING 2004 HEPATITIS C SCREENING 11/19/2007 PNEUMOCOCCAL VACCINE (1 of 2 - PCV) 2008 HEPATITIS B VACCINE (2 of 3 - Hep B Twinrix 3-dose series) 07/24/2015 06/26/2015 HPV VACCINE (2 - 3-dose series) 07/24/2015 6 COVID-19 VACCINE (1 - 2023-2 5 season) 2023 DEPRESSION SCREENING 02/11/2024 INFLUENZA VACCINE (Season Ended) 2024 11/11/19 18 DTAP/TDAP/TD VACCINES (2 - T d or Tdap) 08/04/2032 08/04/2022 ZOSTER VACCINE (1 of 2) 11/24/2039 HIB VACCINE Aged Out No longer eligi ble based on patient's age to complete this topic MENINGOCOCCAL (Group B) VACC INE SHARED DECISION-MAKING Aged Out No longer eligibl e based on patient's age to complete this topic MENINGOCOCCAL GROUPS A/C/Y/W VACCINE Aged Out No longer eligible b ased on patient's age to complete this topic Medical Devices Implanted Type Area Industrial Gas Service Helper Device Identifier Shelf Expiration Date Model / Serial / Lot Sys Fx Rigidloop Lng Ramy Adj Implanted:Qty: 1 on 07/02/2018 by Aidan Quintanilla MD at [facility] Left: Knee [employer] 03/12/2021 [id number] / / [id number] [place] Sut Healix Adv 5.5mm Kntls Peek Implanted:Qty: 1 on 07/02/2018 by Aidan Quintanilla MD at [facility] Left: Knee [employer] 03/12/2021 [id number] / / [id number] Intrafix Advance Biocryl Rapide Sheath And Screw Implanted:Qty: 1 on 07/02/2018 by Aidan Quintanilla MD at [facility] Left: Knee [id number] / / [id number] Insurance [facility] [employer] THIRD CONSTITUTION PARTY LIABILITY [employer] Party Liability
--- OUTSIDE RECORDS SUMMARY | 2024-06-12 14:58 | XMS_ITS | Continuity of Care Document ---
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 Hammer Operator Name Role Phone Unavailable Unavailable Unavailable Medications Medication Instructions Dosage Effective Dates (start - stop) Status Comments Tylenol-Codeine #3 300 mg-30 mg Tab take 1 tablet by ORAL route every 6 hours as needed - Active Procedures Procedure Date Limit oral eval problem focused 010 Periapical first film Extraction erupted tooth or exposed root Advance Directives Directive Yes / No Effective Date File Name No Information Encounters Encounter Description Practice Location Reason(s) For Visit Diagnoses Date Provider Providers Copied on Encounter [facility] , [address], [place], [place], [id number], [place] tel:[phone] [facility] Andujar No Information No Information Family History Family Member Type Diagnosis Age At Onset No Information Payers Payer name Insurance type Covered alliance party ID Authoriza tion(s) No Information Social History Type Description Quantity Date Captured Comments Sex Female Smoking Status No Information Chief Complaint And Reason For Visit No Information Reason For Referral Reason For Referral No Information History Of Present Illness Encounter Date Complaint History Of Prese nt Illness No Information Functional Status Date Functional Assessmen t No Information Instructions Date Instruction Additional Infor mation No Information Assessments Type Assessment Date No Information Patient Care Teams Name Effective Dates (start - stop) Status Members No Information
--- OUTSIDE RECORDS SUMMARY | 2024-06-12 14:58 | XMS_ITS | Clinical Summary ---
Author Organization [facility] Address [facility] [place] [address] Care Team Providers Care Emergency Department Clinician Name Role Phone New Referring, Provider Primary Care Provider Un available Allergies No known active allergies Medications piroxicam (FELDENE) 20 MG capsule Take 1 capsule (20 mg total) by mouth daily. 20 capsule 01/12/2024 Active Social History Tobacco Use Types Packs/Day Years Used Date Smoking Tobacco: Every Day Cigarettes Smokeless Tobacco: Never Alcohol Use Standard Drinks/Week Comments Yes 0 (1 standard drink = 0.6 oz pur e alcohol) socially AUDIT-C Answer Date Recorded Frequency of Alcohol Consumption Never 09/06/2018 Average Number of Drinks Not on file 019 Frequency of Binge Drinking Not on file 08/11 Comments No Sex and Gender Information Value Date Recorded Sex Assigned at Not on file Legal Sex Female 8:50 PM CDT Gender Identity Not on file Sexual Orientation Not on file Last Filed Vital Signs Vital Sign Reading Time Taken Comments Blood Pressure 179/106 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 Pulse 97 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 Temperature 36.6 C (97.8 F) 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 Respiratory Rate 18 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 Oxygen Saturation 100% 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 Inhaled Oxygen Concentration - - Weight 98.6 kg (217 lb 6 oz) 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 Height 167.6 cm (5' 6 ) 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 Body Mass Index 35.09 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 Plan of Treatment Health Maintenance Due Date Last Done Comments Cervical Cancer Screening Pap Smear (Age 30 to 64) Every 3 Years 1989 Annual Physical 1992 Hepatitis C 11/24/2007 Pneumococcal Vaccine: Pediatrics (0 to 5 Years) and At-Risk Patients (6 to 49 Years) (1 of 2 - PCV) 2008 Cervical Cancer Screening Pap with HPV Testing (Age 30 to 64) Every 5 Years 11/24/2019 Cervical Cancer Screening with HPV 11/24/2019 COVID-19 Vaccine ( season) 2023 DTaP, Tdap and Td Vaccines (9 - Td or Tdap) 08/15/2032 08/15/2022, 08/09/2022, 08/04/2022, Additional history exists Meningococcal Vaccine Aged Out 10/16/2004 No nadege farooq eligible based on patient's age to complete this topic HPV Vaccines Completed 06/26/2015, 11/11, 09/01/2006 Hepatitis B Vaccines Completed 06/26/2015, 09/15/1997, 08/03/1997, Additional history exists Meningococcal B Vaccine Aged Out No l onger eligible based on patient's age to complete this topic RSV Immunizations Under 20 Months Aged Out No longer eligible based on patient's age to complete this topic Insurance [facility] Care Teams Emergency Department Clinician Relationship Specialty Start Date End Date New Referring, Provider PCP - General UNKNOWN PHYSICIAN SPECIALTY 09/06/18
--- OUTSIDE RECORDS SUMMARY | 2024-06-12 14:58 | XMS_ITS ---
Author Organization [facility] Address [address] [place] [address] Phone Care Team Providers Care Cigar Inspector Name Role Phone Unavailable Unavailable Unavailable Plan of Treatment No Plan of Treatment Recorded Assessments Includes: Assessments for all patient encounters No Assessments Recorded Medical Equipment - Implanted Devices Includes: Current and historical Devices No Medical Equipment Recorded Medications Administered Includes: Administered Medications in patient's chart No Administered Medications Recorded Results Includes: Results from 06/13/2023 through 06/12/2024 No Results Recorded For Specified Dates History of Present Illness History of Present Illness not supported for this document type No History of Present Illness Recorded Social History No Social History Recorded - Smoking Status Unknown Medical History Includes: Medical History in patient's chart No Medical History Recorded Family History Includes: Family History in patient's chart No Family History Recorded Review of Systems Review of Systems not supported for this document type No Review of Systems Recorded Mental Status No Mental Status Recorded Functional Status No Functional Status Recorded Physical Exam Physical Exam not supported for this document type No Physical Exam Recorded Clinical Notes Includes: Signed Clinical Notes starting from 03/01/2022 No Clinical Notes Recorded
--- OUTSIDE RECORDS SUMMARY | 2024-06-12 14:58 | XMS_ITS | Data Portability ---
Author Organization [facility] Address [address] [facility] [place] [address] Assessment No assessment recorded. Plan of Treatment Reminders Order Date Submit Date Provider Last Modified By Organization Details Last Modified Time Details Appointments None recorded. Lab test, urine 2015 016 DBA_PATCH_2 [id number] In-Office Order, Internal Use Only DO Not Attach Compendium DO Not Attach Compendium, Do Not Delete/merge, [id number] 6 04:31:21 urinalysi s, dipstick 2015 016 DBA_PATCH_2 [id number] In-Office Order, Internal Use Only DO Not Attach Compendium DO Not Attach Compendium, Do Not Delete/merge, [id number] 6 04:30:44 bacterial vaginosis + vaginitis panel, vaginal 2015 016 [facility], [address] [place] [address], [address], [place], [address], 6 17:43:30 HSV (1+2) DNA, qual, PCR, unspecifi ed specimen 2015 016 [facility], [address] [place] [address], [address], [place], [address], 6 17:43:30 culture, vaginal/r ectal, streptoco ccus group B 2015 016 [facility], [address] [facility], [address], [place], [address], 6 17:43:30 hepatitis panel (A+B+C), acute, serum 2015 016 [facility], [address] [facility], [address], [place], [address], 6 17:43:30 hepatitis B surface Ab, qualitati ve, serum 2015 016 [facility], [address] [facility], [address], [place], [address], 6 17:43:30 HIV 1+2 AB + HIV 1 p24 Ag, qualitati ve immunoass ay, serum 2015 016 [facility], [address] [place] [address] [address], [place], [address], 6 17:43:30 RPR (rapid plasma reagin), serum 2015 016 [facility], [address] [facility], [address], [place], [address], 6 17:43:30 hsv-2 (herpes simplex virus type 2) igg Ab, serum 2015 016 [facility], [address] [facility], [address], [place], [address], 6 17:43:30 test, urine 2015 016 [facility] In-Office Order, Internal Use Only DO Not Attach Compendium DO Not Attach Compendium, Do Not Delete/merge, [id number] 6 18:01:27 test, urine 2015 016 [facility] In-Office Order, Internal Use Only DO Not Attach Compendium DO Not Attach Compendium, Do Not Delete/merge, [id number] 6 18:57:39 urinalysi s, dipstick 2015 016 [facility] In-Office Order, Internal Use Only DO Not Attach Compendium DO Not Attach Compendium, Do Not Delete/merge, [id number] 6 18:57:39 pap, IG + HPV, cervical 2015 016 [facility], [address] [place] [address], [address], [place], [address], 6 06:08:56 bacterial vaginosis + vaginitis panel, vaginal 2015 016 [facility], [address] [place] [address], [address], [place], [address], 6 06:08:17 HSV (1+2) DNA, qual, PCR, unspecifi ed specimen 2015 016 [facility], [address] [place] [address], [address], [place], [address], 6 06:08:17 culture, vaginal/r ectal, streptoco ccus group B 2015 016 [facility], [address] [place] [address], [address], [place], [address], 6 06:08:18 Referral None recorded. Procedures removal, implantab le contracep tive (PROC) 2015 016 DBA_PATCH_2 [id number] Not available 6 04:31:21 Surgeries None recorded. Imaging None recorded. Medication Orders calcium 600 mg (as carbonate )-vitamin D3 20 mcg (800 unit) tablet 2015 016 DBA_PATCH_2 [id number] Not available 6 04:30:59 Vitamin tablet 2015 016 DBA_PATCH_2 [id number] Not available 6 04:31:02 Xulane 150 mcg-35 mcg/24 hr transderm al patch 2015 016 Not available 6 17:43:30 Vitamin tablet 2015 016 Not available 6 17:43:30 Iron (ferrous sulfate) 325 mg (65 mg iron) tablet 2015 016 Not available 6 17:43:30 Nexplanon 68 mg subdermal implant 2015 016 [email or web address] Not available 6 18:57:39 Patient TargetsNo targets recorded. Patient Instructions Encounter Date Encounter Id Patient Instructions Last Modified By Organization Details Last Modified Time 06/26/2015 [id number] IUD removal: care instructions [email or web address] Not available 06/26/2015 18:57:39 Reason for Referral None Reported. Results Created Date Observation Date Name Description Value Unit Range Abnormal Flag Note LastModifiedBy Organization Detail LastModifiedTime 12/15/19 16 12/15/2015 urina lysis , dipst ick Leukocytes Trace Not Available In-Offi ce Order Internal Use Only DO Not Attach Compendium DO Not Attach Compendium, Do Not Delete/merge, [id number] 12/15/2015 15:42:33 12/15/19 16 12/15/2015 urina lysis , dipst ick Nitrite negati ve Not Available In-Office Order Internal Use Only DO Not Attach Compendium DO Not Attach Compendium, Do Not Delete/merge, [id number] 12/15/2015 15:42:33 12/15/19 16 12/15/2015 urina lysis , dipst ick Urobilinogen .2 Not Available In-Of fice Order Internal Use Only DO Not Attach Compendium DO Not Attach Compendium, Do Not Delete/merge, [id number] 12/15/2015 15:42:33 12/15/19 16 12/15/2015 urina lysis , dipst ick Protein Negati ve Not Available In-Office Order Internal Use Only DO Not Attach Compendium DO Not Attach Compendium, Do Not Delete/merge, 12/15/2015 15:42:33 12/15/19 16 12/15/2015 urina lysis , dipst ick pH 7.5 Not Available In-Office Order Internal Use Only DO Not Attach Compendium DO Not Attach Compendium, Do Not Delete/merge, 12/15/2015 15:42:33 12/15/19 16 12/15/2015 urina lysis , dipst ick Blood Negati ve Not Available In-Office Order Internal Use Only DO Not Attach Compendium DO Not Attach Compendium, Do Not Delete/merge, 12/15/2015 15:42:33 12/15/19 16 12/15/2015 urina lysis , dipst ick Specific [place] 1.015 Not Available In-Off ice Order Internal Use Only DO Not Attach Compendium DO Not Attach Compendium, Do Not Delete/merge, 12/15/2015 15:42:33 12/15/19 16 12/15/2015 urina lysis , dipst ick Ketone Negati ve Not Available In-Office Order Internal Use Only DO Not Attach Compendium DO Not Attach Compendium, Do Not Delete/merge, 12/15/2015 15:42:33 12/15/19 16 12/15/2015 urina lysis , dipst ick Bilirubin Negati ve Not Available In-Office Order Internal Use Only DO Not Attach Compendium DO Not Attach Compendium, Do Not Delete/merge, 12/15/2015 15:42:33 12/15/19 16 12/15/2015 urina lysis , dipst ick Glucose Negati ve Not Available In-Office Order Internal Use Only DO Not Attach Compendium DO Not Attach Compendium, Do Not Delete/merge, 12/15/2015 15:42:33 12/14/19 16 12/14/2015 pregn ira test, urine HCG negati ve Not Available In-Office Order Internal Use Only DO Not Attach Compendium DO Not Attach Compendium, Do Not Delete/merge, 12/14/2015 16:28:33 11/03/19 16 11/03/2015 pregn ira test, urine HCG negati ve Not Available In-Office Order Internal Use Only DO Not Attach Compendium DO Not Attach Compendium, Do Not Delete/merge, 11/03/2015 17:18:16 06/26/19 16 06/26/2015 urina lysis , dipst ick Leukocytes Trace Not Available In-Offi ce Order Internal Use Only DO Not Attach Compendium DO Not Attach Compendium, Do Not Delete/merge, 06/26/2015 11:57:13 06/26/19 16 06/26/2015 urina lysis , dipst ick Nitrite negati ve Not Available In-Office Order Internal Use Only DO Not Attach Compendium DO Not Attach Compendium, Do Not Delete/merge, 06/26/2015 11:57:13 06/26/19 16 06/26/2015 urina lysis , dipst ick Urobilinogen .2 Not Available In-Of fice Order Internal Use Only DO Not Attach Compendium DO Not Attach Compendium, Do Not Delete/merge, 06/26/2015 11:57:13 06/26/19 16 06/26/2015 urina lysis , dipst ick Protein Negati ve Not Available In-Office Order Internal Use Only DO Not Attach Compendium DO Not Attach Compendium, Do Not Delete/merge, 06/26/2015 11:57:13 06/26/19 16 06/26/2015 urina lysis , dipst ick pH 7.0 Not Available In-Office Order Internal Use Only DO Not Attach Compendium DO Not Attach Compendium, Do Not Delete/merge, 06/26/2015 11:57:13 06/26/19 16 06/26/2015 urina lysis , dipst ick Blood Negati ve Not Available In-Office Order Internal Use Only DO Not Attach Compendium DO Not Attach Compendium, Do Not Delete/merge, 06/26/2015 11:57:13 06/26/19 16 06/26/2015 urina lysis , dipst ick Specific [place] 1.025 Not Available In-Off ice Order Internal Use Only DO Not Attach Compendium DO Not Attach Compendium, Do Not Delete/merge, [id number] 06/26/2015 11:57:13 06/26/19 16 06/26/2015 urina lysis , dipst ick Ketone Negati ve Not Available In-Office Order Internal Use Only DO Not Attach Compendium DO Not Attach Compendium, Do Not Delete/merge, [id number] 06/26/2015 11:57:13 06/26/19 16 06/26/2015 urina lysis , dipst ick Bilirubin Negati ve Not Available In-Office Order Internal Use Only DO Not Attach Compendium DO Not Attach Compendium, Do Not Delete/merge, [id number] 06/26/2015 11:57:13 06/26/19 16 06/26/2015 urina lysis , dipst ick Glucose Negati ve Not Available In-Office Order Internal Use Only DO Not Attach Compendium DO Not Attach Compendium, Do Not Delete/merge, [id number] 06/26/2015 11:57:13 06/26/19 16 06/26/2015 pregn ira test, urine HCG negati ve Not Available In-Office Order Internal Use Only DO Not Attach Compendium DO Not Attach Compendium, Do Not Delete/merge, [id number] 06/26/2015 11:57:13 06/26/19 16 06/28/2015 bacte rial vagin osis + vagin itis panel , vagin al atopobium vaginae HIGH - 2 score abnormal Not Available [facility] ([facility]) [address] [place], [address], 06/29/2015 06:08:17 06/26/1906/28/2015 bacte rial vagin osis + vagin itis panel , vagin al bvab 2 HIGH - 2 score abnormal Not Available [facility] ([facility]) [address] [place], [address], 06/29/2015 06:08:17 06/26/19 16 06/28/2015 bacte rial vagin osis + vagin itis panel , vagin al megasphaera 1 HIGH - 2 score abnormal CALCU LATE TOTAL SCORE BY MYESHA Cadet THE 3 INDIV IDUAL BACTE RIAL VAGIN OSIS (BV) MARKE R SCORE S TOGET HER. TOTAL SCORE IS INTER PRETE D FOLLO WS: TOTAL SCORE 0-1: INDIC ATES THE ABSEN CE OF BV. TOTAL SCORE 2: INDET ERMIN ATE FOR BV. ADDIT IONAL CLINI GABRIEL DATA SHOUL D BE EVALU ATED TO ESTAB JOSE ALEJANDRO A DIAGN OSIS. TOTAL SCORE 3-6: INDIC ATES THE PRESE NCE OF BV. THIS TEST WAS DEVEL OPED AND ITS PERFO RMANC E AJ CTERI STICS DETER MINED BY [facility]. IT HAS NOT BEEN CLEAR ED OR APPRO MARELY BY THE FOOD AND DRUG ADMIN ISTRA TION. THE FDA HAS DETER MINED THAT SUCH CLEAR ANCE OR APPRO DIANELYS IS NOT NECES ASHLEY. Not Available [facility] ([facility]) [address] [place], [address], 06/29/2015 06:08:17 06/26/19 16 06/28/2015 bacte rial vagin osis + vagin itis panel , vagin al broderick albicans, JEROME NEGATI VE negati ve Not Available [facility] ([facility]) [address] [place], [address], 06/29/2015 06:08:17 06/26/1906/28/2015 bacte rial vagin osis + vagin itis panel , vagin al broderick glabrata, JEROME NEGATI VE negati ve THIS TEST WAS DEVEL OPED AND ITS PERFO RMANC E AJ CTERI STICS DETER MINED BY [facility]. IT HAS NOT BEEN CLEAR ED OR APPRO MARELY BY THE FOOD AND DRUG ADMIN ISTRA TION. THE FDA HAS DETER MINED THAT SUCH CLEAR ANCE OR APPRO DIANELYS IS NOT NECES ASHLEY. Not Available [facility] ([facility]) [address] [place], [address], 06/29/2015 06:08:17 06/26/1906/28/2015 bacte rial vagin osis + vagin itis panel , vagin al trich vag by JEROME NEGATI VE negati ve Not Available [facility] ([facility]) [address] [place], [address], 06/29/2015 06:08:17 06/26/19 16 06/28/2015 bacte rial vagin osis + vagin itis panel , vagin al chlamydia trachomatis, JEROME POSITI VE negati ve abnormal Not Available [facility] ([facility]) [address] [place], [address], 06/29/2015 06:08:17 06/26/1906/28/2015 bacte rial vagin osis + vagin itis panel , vagin al neisseria gonorrhoeae, JEROME NEGATI VE negati ve Not Available [facility] ([facility]) [address] [place], [address], 06/29/2015 06:08:17 06/26/1906/28/2015 HSV (1+2) DNA, qual, PCR, unspe cifie d speci men hsv 1 JEROME NEGATI VE negati ve Not Available [facility] ([facility]) [address] [place], [address], 06/29/2015 06:08:17 06/26/1906/28/2015 HSV (1+2) DNA, qual, PCR, unspe cifie d speci men hsv 2 JEROME NEGATI VE negati ve Not Available [facility] ([facility]) [address] [place], [address], 06/29/2015 06:08:17 06/26/1906/28/2015 cultu re, vagin al/re ctal, strep tococ cus group B strep gp B JEROME NEGATI VE negati ve CENT[facility] RS FOR DISEA SE CONTR OL AND PREVE NTION (CDC) AND AMERI CAN CONGR ESS OF OBSTE TRICI ANS AND GYNEC OLOGI STS (ACOG ) GUIDE LINES FOR PREVE NTION OF PERIN ATAL GROUP B STREP TOCOC GABRIEL (GBS) DISEA SE SPECI FY CO-CO LLECT ION OF A VAGIN AL AND RECTA L SWAB SPECI MEN TO MAXIM IZE SENSI TIVIT Y OF GBS DETEC TION. PER THE CDC AND ACOG, SWABB ING BOTH THE LOWER VAGIN A AND RECTU M SUBST ANTIA LLY INCRE ASES THE YIELD OF DETEC TION TRANG RED WITH SAMPL ING THE VAGIN A ALONE . PENIC ILLIN G, AMPIC ILLIN , OR CEFAZ STIVEN ARE INDIC ATED FOR INTRA PARTU M PROPH YLAXI S OF PERIN ATAL GBS COLON IZATI ON. REFLE X SUSCE PTIBI LITY TESTI NG SHOUL D BE PERFO RMED PRIOR TO USE OF CLIND AMYCI N ONLY ON GBS ISOLA NAHUM FROM PENIC ILLIN -HAIDER RGIC WOMEN WHO ARE CONSI DERED A HIGH RISK FOR ANAPH YLAXI S. TREAT MENT WITH VANCO MYCIN WITHO UT ADDIT IONAL TESTI NG IS WARRA NTED IF RESIS TANCE TO CLIND AMYCI N IS NOTED . Not Available [facility] (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 PREDO SEAN CE OF COCCO BACIL LI CONSI STENT WITH SHIFT IN VAGIN AL RENETTA IS PRESE NT. CELLU LAR ABERNATHY ES ASSOC IATED WITH INFLA MMATI ON ARE PRESE NT. Not Available [facility] ([facility]) [address] [place], [address], 06/29/2015 06:08:56 06/26/1906/28/2015 pap, IG + HPV, cervi gabriel specimen adequacy: COMMEN T SATIS FACTO RY FOR EVALU ATION . ENDOC ERVIC AL AND/O R SQUAM OUS METAP LASTI C CELLS (ENDO CERVI GABRIEL COMPO NENT) ARE PRESE NT. Not Available [facility] ([facility]) [address] [facility], [place], [address], 06/29/2015 06:08:56 06/26/1906/28/2015 pap, IG + HPV, cervi gabriel clinician provided ICD10: JARET Barrett Z01.4 19 Z11.5 1 Not Available [facility] ([facility]) [address] [place], [address], 06/29/2015 06:08:56 06/26/19 16 06/28/2015 pap, IG + HPV, cervi gabriel performed by: JARET MONTIEL , TOM Barrett (ASCP ) Not Available [facility] ([facility]) [address] [place], [address], 06/29/2015 06:08:56 06/26/19 16 06/28/2015 pap, IG + HPV, cervi gabriel . . Not Available [facility] ([facility]) [address] [place], [address], 06/29/2015 06:08:56 06/26/1906/28/2015 pap, IG + HPV, cervi gabriel note: JARET Barrett THE PAP SMEAR IS A SCREE DEV TEST DESIG CUATE TO AID IN THE DETEC TION OF JONATHAN LIGNA NT AND MALIG NANT CONDI TIONS OF THE UTERI NE CERVI X. IT IS NOT A DIAGN OSTIC PROCE DURE AND SHOUL D NOT BE USED THE SOLE MEANS OF DETEC TING CERVI GABRIEL CANCE R. BOTH FALSE -POSI TIVE AND FALSE -NEGA TIVE REPOR TS DO OCCUR . Not Available [facility] ([facility]) [address] [place], [address], 06/29/2015 06:08:56 06/26/1906/28/2015 pap, IG + HPV, cervi gabriel test methodology: JARET Barrett THIS LIQUI D BASED THINP REP(R ) PAP TEST WAS SCREE CUATE WITH THE USE OF AN IMAGE GUIDE Tessa Daniel. Not Available [facility] ([facility]) [address] [place], [address], 06/29/2015 06:08:56 06/26/19 16 06/29/2015 pap, IG + HPV, cervi gabriel HPV aptima POSITI VE negati ve abnormal THIS TEST DETEC TS FOURT EEN HIGH- RISK HPV TYPES (16/1 8/31/ 33/35 /39/4 5/ 51/52 /56/5 8/59/ 66/68 ) WITHO UT DIFFE MELISSA ATEMELINA . Not Available [facility] ([facility]) [address] [facility], [place], [address], 06/29/2015 06:08:56 10/24/19 16 10/25/2015 hepat itis panel (A+B+ C), acute , serum hep A Ab, IgM NEGATI VE negati ve Not Available [facility] ([facility]) [address] [place], [address], 10/25/2015 08:30:13 10/24/19 16 10/25/2015 hepat itis panel (A+B+ C), acute , serum HBsAg screen NEGATI VE negati ve Not Available [facility] ([facility]) [address] [facility], [place], [address], 10/25/2015 08:30:13 10/24/19 16 10/25/2015 hepat itis panel (A+B+ C), acute , serum hep B core Ab, IgM NEGATI VE negati ve Not Available [facility] ([facility]) [address] [facility], [place], [address], 10/25/2015 08:30:13 10/24/19 16 10/25/2015 hepat itis panel (A+B+ C), acute , serum hep C virus Ab <0.1 S/co_ ratio 0.0-0. 9 NEGAT CARLOTA: < 0.8 INDET ERMIN ATE: 0.8 - 0.9 POSIT CARLOTA: > 0.9 THE CDC RECOM MENDS THAT A POSIT CARLOTA HCV ANTIB MICHELLE RESUL T BE FOLLO WED UP WITH A HCV NUCLE IC ACID AMPLI FICAT ION TEST (5507 13). Not Available [facility] ([facility]) [address] [place], [address], 10/25/2015 08:30:13 10/24/19 16 10/25/2015 hepat itis B surfa ce Ab, quali tativ e, serum hep B surface Ab, qual REACTI VE NON REACT CARLOTA: INCON SISTE NT WITH IMMUN ITY, LESS THAN 10 MIU/M L REACT CARLOTA: CONSI STENT WITH IMMUN ITY, GREAT ER THAN 9.9 MIU/M L Not Available [facility] ([facility]) [address] [facility], [place], [address], 10/25/2015 08:30:13 10/24/19 16 10/25/2015 RPR (rapi d plasm a reagi n), serum RPR NON REACTI VE non reacti ve Not Available [facility] ([facility]) [address] [place], [address], 10/25/2015 08:30:13 10/24/19 16 10/25/2015 HIV 1+2 AB + HIV 1 p24 Ag, quali tativ e immun oassa y, serum HIV screen 4TH generation wrfx NON REACTI VE non reacti ve Not Available [facility] ([facility]) [address] [facility], [place], [address], 10/25/2015 08:30:14 10/24/19 16 10/25/2015 hsv-2 (herp es simpl ex virus type 2) igg Ab, serum hsv 2 IgG, type spec 1.29 index 0.00-0 .90 above high normal NEGAT CARLOTA <0.91 EQUIV OCAL 0.91 - 1.09 POSIT CARLOTA >1.09 NOTE: NEGAT CARLOTA INDIC ATES NO ANTIB ODIES DETEC SAMIR TO HSV-2 . EQUIV OCAL MAY SUGGE ST EARLY INFEC TION. IF CLINI VILMA APPRO PRIAT E, RETES T AT LATER DATE. POSIT CARLOTA INDIC ATES ANTIB ODIES DETEC SAMIR TO HSV-2 . Not Available [facility] ([facility]) [address] [facility], [place], [address], 10/25/2015 08:30:14 10/24/19 16 10/26/2015 bacte rial vagin osis + vagin itis panel , vagin al atopobium vaginae LOW - 0 score Not Available [facility] ([facility]) [address] [place], [address], 10/28/2015 16:10:21 10/24/19 16 10/26/2015 bacte rial vagin osis + vagin itis panel , vagin al bvab 2 LOW - 0 score Not Available [facility] ([facility]) [address] [place], [address], 10/28/2015 16:10:21 10/24/19 16 10/26/2015 bacte rial vagin osis + vagin itis panel , vagin al megasphaera 1 LOW - 0 score CALCU LATE TOTAL SCORE BY MYESHA Cadet THE 3 INDIV IDUAL BACTE RIAL VAGIN OSIS (BV) MARKE R SCORE S TOGET HER. TOTAL SCORE IS INTER PRETE D FOLLO WS: TOTAL SCORE 0-1: INDIC ATES THE ABSEN CE OF BV. TOTAL SCORE 2: INDET ERMIN ATE FOR BV. ADDIT IONAL CLINI GABRIEL DATA SHOUL D BE EVALU ATED TO ESTAB JOSE ALEJANDRO A DIAGN OSIS. TOTAL SCORE 3-6: INDIC ATES THE PRESE NCE OF BV. THIS TEST WAS DEVEL OPED AND ITS PERFO RMANC E AJ CTERI STICS DETER MINED BY [facility]. IT HAS NOT BEEN CLEAR ED OR APPRO MARELY BY THE FOOD AND DRUG ADMIN ISTRA TION. THE FDA HAS DETER MINED THAT SUCH CLEAR ANCE OR APPRO DIANELYS IS NOT NECES ASHLEY. Not Available [facility] ([facility]) [address] [place], [address], 10/28/2015 16:10:21 10/24/19 16 10/26/2015 bacte rial vagin osis + vagin itis panel , vagin al broderick albicans, JEROME POSITI VE negati ve abnormal Not Available [facility] ([facility]) [address] [place], [address], 10/28/2015 16:10:21 10/24/19 16 10/26/2015 bacte rial vagin osis + vagin itis panel , vagin al broderick glabrata, JEROME NEGATI VE negati ve THIS TEST WAS DEVEL ARIEL AND ITS PERFO RMANC E AJ CTERI STICS DETER MINED BY [facility]. IT HAS NOT BEEN CLEAR ED OR APPRO MARELY BY THE FOOD AND DRUG ADMIN ISTRA TION. THE FDA HAS DETER MINED THAT SUCH CLEAR ANCE OR APPRO DIANELYS IS NOT NECES ASHLEY. Not Available [facility] ([facility]) [address] [place], [address], 10/28/2015 16:10:21 10/24/19 16 10/27/2015 bacte rial vagin osis + vagin itis panel , vagin al trich vag by JEROME NEGATI VE negati ve Not Available [facility] ([facility]) [address] [place], [address], 10/28/2015 16:10:21 10/24/19 16 10/27/2015 bacte rial vagin osis + vagin itis panel , vagin al chlamydia trachomatis, JEROME NEGATI VE negati ve Not Available [facility] ([facility]) [address] [place], [address], 10/28/2015 16:10:21 10/24/19 16 10/27/2015 bacte rial vagin osis + vagin itis panel , vagin al neisseria gonorrhoeae, JEROME NEGATI VE negati ve Not Available [facility] ([facility]) [address] [place], [address], 10/28/2015 16:10:21 10/24/19 16 10/28/2015 HSV (1+2) DNA, qual, PCR, unspe cifie d speci men hsv 1 JEROME NEGATI VE negati ve Not Available [facility] ([facility]) [address] [place], [address], 10/28/2015 16:10:21 10/24/19 16 10/28/2015 HSV (1+2) DNA, qual, PCR, unspe cifie d speci men hsv 2 JEROME NEGATI VE negati ve Not Available [facility] ([facility]) [address] [facility], [place], [address], 10/28/2015 16:10:21 10/24/19 16 10/26/2015 cultu re, vagin al/re ctal, strep tococ cus group B strep gp B JEROME NEGATI VE negati ve CENT[facility] RS FOR DISEA SE CONTR OL AND PREVE NTION ([facility]) AND AMERI CAN CONGR ESS OF OBSTE TRICI ANS AND GYNEC OLOGI STS (ACOG ) GUIDE LINES FOR PREVE NTION OF PERIN ATAL GROUP B STREP TOCOC GABRIEL (GBS) DISEA SE SPECI FY CO-CO LLECT ION OF A VAGIN AL AND RECTA L SWAB SPECI MEN TO MAXIM IZE SENSI TIVIT Y OF GBS DETEC TION. PER THE [facility] AND ACOG, SWABB ING BOTH THE LOWER VAGIN A AND RECTU M SUBST ANTIA LLY INCRE ASES THE YIELD OF DETEC TION TRANG RED WITH SAMPL ING THE VAGIN A ALONE . PENIC ILLIN G, AMPIC ILLIN , OR CEFAZ STIVEN ARE INDIC ATED FOR INTRA PARTU M PROPH YLAXI S OF PERIN ATAL GBS COLON IZATI ON. REFLE X SUSCE PTIBI LITY TESTI NG SHOUL D BE PERFO RMED PRIOR TO USE OF CLIND AMYCI N ONLY ON GBS ISOLA NAHUM FROM PENIC ILLIN -HAIDER RGIC WOMEN WHO ARE CONSI DERED A HIGH RISK FOR ANAPH YLAXI S. TREAT MENT WITH VANCO MYCIN WITHO UT ADDIT IONAL TESTI NG IS WARRA NTED IF RESIS TANCE TO CLIND AMYCI N IS NOTED . Not Available [facility] ([facility]) [address] [facility], [place], [address], 10/28/2015 16:10:22 Result Notes None recorded. Problems Name Problem SNOMED Code Status Onset Date Resolution Date Notes Provider Name and Address Organization Details Recorded Time Bacterial vaginosis 230361461 Active Loc dangelo [facility] 6 06:53:38 Chlamydial infection 483443714 Active Loc dangelo [facility] 6 06:53:38 Human papilloma virus infection 712335766 Active Loc dangelo [facility] 6 06:53:38 Candidiasis of vagina 12466054 Active Loc dangelo [facility] 6 09:21:38 Herpes simplex [id number] Active Loc dangelo [facility] 6 09:21:38 Problem Notes None recorded. Procedures Surgical History Date Name Laterality Status Provider Name and Address Organization Details Recorded Time 6 Control Implant Removal completed Loc Mistry [facility] 12/14/2015 21:47:07 6 Date of Last Pap Smear completed Maya Alberts [facility] 10/24/2015 11:36:21 6 Control Implant Insertion completed Loc Mistry [facility] 06/26/2015 18:54:45 6 IUD Removal completed Loc Mistry [facility] 06/26/2015 18:54:45 Imaging Results None recorded. Procedure Notes None recorded. Medical Equipment None Reported. Allergies No known drug allergies Medications Name Sig Start Date Stop Date Status Note LastModified by Organization Details LastModified Time amoxicillin 500 mg capsule active Not Available Not Available Not Available Iron (ferrous sulfate) 325 mg (65 mg iron) tablet Take 1 tablet every day by oral route. 2015 active Not Available Not Available Not Avai lable azithromycin 250 mg tablet TAKE 2 TABLETS (500 MG) BY ORAL ROUTE ONCE DAILY FOR 1 DAY THEN 1 TABLET (250 MG) BY ORAL ROUTE ONCE DAILY FOR 4 DAYS active Not Available Not Available No t Available fluconazole 150 mg tablet Take 1 tablet by oral route. 2015 active Not Available Not Available Not Avai lable metronidazol e 500 mg tablet Take 1 tablet twice a day by oral route. active Not Available Not Available No t Available acetaminophe n 300 mg-codeine 30 mg tablet active Not Available Not Available Not Available Condoms-Ayan Lubricated Take 1 device as needed by miscell. route as needed. 2015 active Not Available Not Available Not Avai lable acyclovir 800 mg tablet Take 1 tablet every day by oral route. 2015 active Not Available Not Available Not Avai lable Vitamin tablet Take 1 tablet every day by oral route as directed. 2015 active Not Available Not Available Not Avai lable amoxicillin 875 mg-potassium clavulanate 125 mg tablet active Not Available Not Available Not Available NuvaRing 0.12 mg-0.015 mg/24 hr vaginal Insert 1 vaginal ring every month by vaginal route as directed. 2014 active Not Available Not Available Not Avai lable Nexplanon 68 mg subdermal implant Inject 1 implant by subcutaneou s route. 2015 active Not Available Not Available Not Avai lable calcium 600 mg (as carbonate)-v itamin D3 20 mcg (800 unit) tablet Take 1 tablet twice a day by oral route for 30 days. 2015 active Not Available Not Available Not Avai lable Xulane 150 mcg-35 mcg/24 hr transdermal patch Appy 1 patch to skin weekly for 3 weeks at a time with no patch the 4th week. active Not Available Not Available No t Available Vitals Date Recorded Body height Body weight Body mass index (BMI) Systolic blood pressure Diastolic blood pressure Provider Name and Address Organization Details Last Updated DateTime 06/26/2015 165.1 cm 74662.47 4 g 33.3 kg/m2 130 mm[Hg] 84 mm[Hg] Maya Alberts MA [facility] 6 11:50:19 Date Recorded Body height Body weight Body mass index (BMI) Systolic blood pressure Diastolic blood pressure Provider Name and Address Organization Details Last Updated DateTime 10/24/2015 152.4 cm 84404.62 059 g 40.4 kg/m2 118 mm[Hg] 62 mm[Hg] Maya Alberts MA [facility] 6 11:48:38 Date Recorded Body height Body weight Body mass index (BMI) Provider Name and Address Organization Details Last Updated DateTime 12/14/2015 165.1 cm 87766.77 g 35.6 kg/m2 Latoya Medina MA [facility] 12/14/2015 16:23:15 Social History Question Answer Notes LastModified by Organizat ion Details LastModified Time Tobacco Smoking Status Current Every Day Smoker Maya Alberts, [facility], [place] - [facility] 06/26/2015 11:36:41 Do You Have An Advance Directive? No Information not available 06/26/2015 What Is Your Level Of Alcohol Consumption? None Information not available 06/26/2015 Is Blood Transfusion Acceptable In An Emergency? Yes Information not available 06/26/2015 What Is Your Level Of Caffeine Consumption? Occasional Information not available 06/26/2015 How Much Tobacco Do You Chew? None Information not available 06/26/2015 Are You Currently Employed? Yes Information not available 06/26/2015 What Type Of Diet Are You Following? 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 With Others Information not available 06/26/2015 How Many Children Do You Have? 1 Information not available 06/26/2015 Performs Monthly Self-breast Exam? No Information no t available 06/26/2015 Do You Use Protection During Sex? No Information not available 06/26/2015 What Is Your Relationship Status? Information not available 06/26/2015 Seat Belts Used Routinely Yes Information not available 06/26/2015 Are You Sexually Active? Yes Information not available 06/26/2015 At What Age Did You Start Smoking Tobacco? 15 Information not available 06/26/2015 How Much Tobacco Do You Smoke? 0.5 PPD Information not available 06/26/2015 General Stress Level High Information not available 06/26/2015 Do You Use Sunscreen Routinely? No Information not available 06/26/2015 How Many Years Have You Smoked Tobacco? 8 Information not available 06/26/2015 Sex: Female Functional Status Question Answer Note LastModified by Organizat ion Details LastModified Time What is your exercise level? Occasional Information not available 06/26/2015 Mental Status None recorded. Family History Nothing Reported. Medical History Condition Response Other N High Blood Pressure N Breast Cancer N Thyroid Problems N Kidney or Bladder Problems N Lung Disease N Depression N Blood Clots N GI Problems N Acne N Breast Problem N Eating Disorder N Anemia Y Anesthesia Complications N Headaches/Migraines N Ovarian Cancer N Diabetes N Anxiety Disorder N Muscle, Joint, or Bone Problems N Blood Transfusions N Seizures/Epilepsy N Polyps N Infertility N Acid Reflux (GERD) N Cancer N Abuse/Domestic Violence N Asthma N Endometriosis N High Cholesterol N Hepatitis N Liver Disease N Heart Disease N Pre-Eclampsia N Osteoporosis N Gynecological History Statement/Question Response Abnormal Pap N Flow Light On BCP's at Conception? Y STIs/STDs N HPV Vaccine Y Duration of Flow (days) 2 Age at Menarche 13 Current Control Method Implant Age at First Child 21 Frequency of Cycle (Q days) Sexually Active? Y Menses Monthly N Date of Last Pap Smear 06/30/2015 Sexual Problems? N LMP Approximate Desired Control Method Seeking Pre gnancy Obstetrics History GPAL:G 1 P 1 0 0 1 Type Value Multiple Births 0 Full Term 1 Induced 0 Spontaneous 0 Premature 0 Living 1 Ectopics 0 Total 1 Immunizations Vaccine Type Date Status Note Provider Nam e and Address Organization Details Recorded Time HPV9 06/26/2015 completed Not Available [facility] 02/27/2019 02:51:04 Hep A-Hep B 06/26/2015 completed Not Available [facility]/27/2019 02:47:18 Past Encounters Encounter ID Performer Location Encounter Start Date Encounter Closed Date Diagnosis/Indication Diagnosis SNOMED-CT Code Diagnosis ICD10 Code Diagnosis Note [id number] MD Gildardo Yoon (DIRECTOR OF VENDOR MANAGEMENT) [address] [place] [phone] 0 06/26/2015 11:09:47 06/26/2015 18:57:01 Gynecologic examination 82378144 Z01.419 Z11.51 Venereal d isease screening 871367221 Z11.3 Removal of intrauterine device 15489458 Z30.432 Implantati on of subcutaneous contraceptive 237581514 Z30.9 Active or passive immunization 520858045 Z23 Family josh nning surveillance 316062383 Z30.09 [id number] MD Gildardo Yoon (DIRECTOR OF VENDOR MANAGEMENT) [address] [place] [id number] 0 10/24/2015 11:15:44 10/25/2015 10:58:45 Venereal disease screening 143025164 Z11.3 Family josh nning surveillance 329834271 Z30.09 Subcutaneo us contraceptive implant palpable 804022985 Z30.49 [id number] Loc Mistry [facility] (DIRECTOR OF VENDOR MANAGEMENT) [address] [place] [address] 12/14/2015 15:46:05 12/14/2015 22:13:54 Family planning surveillance 804138751 Z30.09 Health Concerns Section Related Observation LastModified by Organization Detai ls LastModified Time None Recorded Concern Status LastModified by Organization Details LastModified Time None Recorded Advance Directives Directive N: Payers Encounter Date Sequence Insurance Name Policy Number Policy Mendoza Covered Member ID Mendoza Member ID Guarantor Name 06/26/2015 1 [facility] [id number] Zoya Castillo [id number] [facility] 10/24/2015 1 [facility] [id number] Zoya Castillo [id number] [facility] 12/14/2015 1 [facility] [id number] Zoya Castillo [id number] [facility] Notes Date Note Type Note Provider Name and Address Organization Details Recorded Time 06/26/2015 text/html Annual GYNReport ed bypatient.History:n o gynecologic complaints; desires to change control Menstrual cycle:Normal menses Urinary symptoms:No hematuria; No incontinence Vulva:No genital lesion Vagina:Normal vaginal discharge Breast:No breast pain; No breast lump; No nipple discharge Current Contraception:Intra uterine device (iud); Wants to discuss contraceptive options; not satisfied with current contraception Sexual complaints:No sexual complaints; No pain during intercourse; Normal libido Menopausal Symptoms:No menopausal symptoms; Normal vaginal lubrication Psychological symptoms:No depression; No anxiety; No PMDD Preventive measures:Encourage self breast examination; Encourage regular exercise; Encourage no tobacco use; Encourage regular mammograms starting age 40; Followed with Q3 year pap smear and high risk HPV typingNotes:24 y/o WF presents for annual exam, removal of mirena, and wants nexplanon inserted AXEL Toussaint - [facility] 06/26/2015 18:55:00 10/24/2015 text/html MOISES is a 24yo fem tara who presents for a Nexplanon check and STD screening. Patient had the Nexplanon implanted in June of 2015 and has barely noticed it since . C/o some weight gain and amenorrhea with bloating, mood changes, and cramping. Patient is concerned and would like to have a period if possible. Endorses abnormal discharge, vulvar irritation, and foul odor. [facility] [place] [facility] 11/06/2015 17:43:32 12/14/2015 text/html OCP CheckReporte d bypatient.Associate d Symptoms:regular menses; no BTB menses; no side effects 25yo who presents for nexplanon removal Preeti [facility] [place], [place] - [facility] 12/15/2015 15:43:43 OBGyn Episode Ob Episode Information Episode Created Date Number of Fetuses Patient Bloodtype Patient rh Status Prepregnancy Weight lbs Domestic Partner Domestic Partner Phone Father Name Senior Sourcing Manager Status 06/26/19 16 1 CLOSED Fetus Data First Name Last Name Admitted to NICU Weight (g) Sex Living Outcome Pediatric Complications Fetus ID Race Codes Race Delivery Type 3260.19 25 M Full Term [id number] Vaginal Chong Calculation Initial Chong Date Initial Exam Date Initial Exam Provider Initial Ultrasound Date Last Menstrual Period Date Ultra Sound Weeks Gestation 0 Eighteen To Twenty Week Chong Update Ultra Sound Date Fundal Height At Umbil Quickening Date Ultra Sound Latest Weeks Gestation Final Chong Confirmed By Final Chong Confirmed Date Final Chong Date Ultra Sound Latest Days Gestation 0 0 Menstrual History Last Menstrual Date Menses Monthly On Bcp Conception Prior Menses Frequency Hcg Plus Date Menarche Onset Age Delivery Information Delivery Date Delivery Type Labor Anesthesia Weeks Gestation Incision Type Labor Labor Length Hrs Delivered By Post Complications Tubal Sterilization Discharge Date Comments 2 Regional-Ep idural 38 false 20 Salazar Discharge Information Feeding Method Contraceptive Method Maternal HG B and HCT Levels
--- OUTSIDE RECORDS SUMMARY | 2024-06-12 14:58 | XMS_ITS | Patient Health Record ---
Author Organization [facility] Address [address] [place] [address] Support Name Relationship Address Phone Tanja Bush Guarantor Unknown Reason For Referral No Information Plan Of Treatment No Information Insurance Providers Payer Name Payer Address Payer Phone Subscriber Number Group Number Insured Name Patient Relationship to Insured Coverage Start Date Coverage End Date [facility] Att Claims Department [address] [place] [address] [id number] Tanja Bush Self - patient is the insured 4
--- OUTSIDE RECORDS SUMMARY | 2024-06-12 14:58 | XMS_ITS ---
Care Plan - [facility] Created on: June 12, 2024 SUZAN HAND : 1990 Sex: Female Author Organization [facility] Address [address] [place] [address] Phone Care Team Providers Care Web Feeder Name Role Phone Unavailable Unavailable Unavailable
--- OUTSIDE RECORDS SUMMARY | 2024-06-12 14:58 | XMS_ITS | Clinical Summary ---
Author Organization [facility] Address [address] [place] [address] Phone Care Team Providers Care Extractor Machine Operator Name Role Phone Unavailable Primary Care Provider Unavailabl e Social History Tobacco Use Types Packs/Day Years Used Date Smoking Tobacco: Never Assessed Comments Unknown Sex and Gender Information Value Date Recorded Sex Assigned at Not on file Legal Sex Female 6:12 AM HAND GRINDER Gender Identity Not on file Sexual Orientation Not on file Last Filed Vital Signs Vital Sign Reading Time Taken Comments Blood Pressure 135/94 04/29/2018 6:15 PM CDT Pulse 81 01/14/2012 2:57 PM HAND GRINDER Temperature 36.8 C (98.3 F) 04/29/2018 6:15 PM CDT Respiratory Rate 14 04/29/2018 6:15 PM CDT Oxygen Saturation 98% 04/29/2018 6:15 PM CDT Inhaled Oxygen Concentration - - Weight 104.3 kg (230 lb) 04/29/2018 6:15 PM CDT Height 167.6 cm (5' 6 ) 04/29/2018 6:15 PM CDT Body Mass Index 37.12 04/29/2018 6:15 PM CDT Plan of Treatment Health Maintenance Due Date Last Done Comments DTAP/TDAP/TD VACCINES (1 - Tdap) 2008 HEPATITIS B VACCINES (1 of 3 - 19+ 3-dose series) 2008 HPV/Cotest (21-29) 2010 CERVICAL CANCER SCREENING 11/24/2019 HPV/Cotest (30-65) 11/24/2019 PAP SMEAR 11/24/2019 INFLUENZA VACCINE (#1) 2023 HPV VACCINES Aged Out No longer eligi ble based on patient's age to complete this topic
--- OUTSIDE RECORDS SUMMARY | 2024-06-12 14:58 | XMS_ITS ---
Author Organization [facility] Address [address] [place] [address] Care Team Providers Care Shot Lighter Name Role Phone MulugetajessieJessica Unavailable REASON FOR VISIT DOC Fentanyl, Last Use 02/13/2023, Possible continuation of suboxone, referral from [facility] Encounters Encounter Location Date Provider Diagnosis [address] [address] 03/24/2023 Jessica Welsh Plan Of Treatment No Information Progress Notes * WALDEMAR JulisaGuevaraOB:[birth year] (33 yo F)Acc No.[id number]:03/24/2023 UNLOCKED PROGRESS NOTE Patient: Tanja GUTIERREZ Provider: Nabil Welsh, MSN, LINE LEADER, MONEY POSITION OFFICER-BC, MONEY POSITION OFFICER-C :1990 A ge:32 Y S ex:Female Date:03/24/2023 Address:[address] [place], [place] [phone] Subjective: * Chief Complaints: * 1 . DOC Fentanyl, Last Use 02/13/2023, Possible continuation of suboxone, referral from [facility]. * Medical History: Objective: * Vitals: Assessment: Plan: * Treatment: * * Electronic signature of Derke Welsh APRN, [id number] on 06/12/2024 at 02:58 PM CDT Sign off status: Pending * Provider: Nabil Welsh, MSN, LINE LEADER, MONEY POSITION OFFICER-BC, MONEY POSITION OFFICER-C Date: 0 03/24/2023 Generated for Printing/Faxing/eTransmitting on: 0 06/12/2024 02:58 PM CDT
--- OUTSIDE RECORDS SUMMARY | 2024-06-12 14:59 | XMS_ITS | Clinical Summary ---
Author Organization [facility] Address [address] [place] [address] Phone Care Team Providers Care Certified Pharmacist Assistant Name Role Phone Provider, None Primary Care Provider Unavailabl e Medications * This document contains information received from the source organization and may not represent a complete record from that organization. No known medications Active Problems Problem Noted Date Diagnosed Date Fentanyl use disorder, mild, abuse 03/17/2023 Tobacco abuse 03/17/2023 Marijuana abuse 03/17/2023 Chronic knee pain 03/17/2023 Resolved Problems Problem Noted Date Diagnosed Date Resolved Date Opioid withdrawal 03/17/2023 03/20/2023 Social History Tobacco Use Types Packs/Day Years Used Date Smoking Tobacco: Every Day Cigarettes Smokeless Tobacco: Never Tobacco Cessation:Ready to Q uit: Not Asked; Counseling Given: Not Answered Alcohol Use Standard Drinks/Week Comments Never 0 (1 standard drink = 0.6 oz pur e alcohol) [facility] Utilities Answer Date Recorded In the past 12 months has e [employer], gas, oil, or water [employer] threatened to shut off services in your home? No 03/17/2023 Hunger Vital Sign Answer Date Recorded Within the past 12 months, y ou worried that your food would run out before you got the money to buy more. Never true 03/17/19 24 Within the past 12 months, t he food you bought just didn't last and you didn't have money to get more. Never true 03/17/2023 PRAPARE - Transportation Answer Date Re corded In the past 12 months, has l ack of transportation kept you from medical appointments or from getting medications? No 06/2023 In the past 12 months, has l ack of transportation kept you from meetings, work, or from getting things needed for daily living? No 03/17/2023 Housing Stability Vital Sign Answer Marcos e Recorded In the last 12 months, was t here a time when you were not able to pay the mortgage or rent on time? No 03/17/2023 In the last 12 months, how many places have you lived? 2 03/17/2023 In the last 12 months, was t here a time when you did not have a steady place to sleep or slept in a half-way (including now)? No 03/17/2023 Comments No Sex and Gender Information Value Date Recorded Sex Assigned at Not on file Legal Sex Female 4:33 PM PARK [place]ARD[employer] Gender Identity Not on file Sexual Orientation Not on file Last Filed Vital Signs Vital Sign Reading Time Taken Comments Blood Pressure 144/81 03/20/2023 11:00 AM [place] Pulse 54 03/20/2023 11:00 AM [place] Temperature 37.3 C (99.1 F) 03/20/2023 11:00 AM [place] Respiratory Rate 18 03/20/2023 11:00 AM [place] Oxygen Saturation 100% 03/20/2023 11:00 AM [place] Inhaled Oxygen Concentration - - Weight 81.6 kg (180 lb) 03/17/2023 11:26 AM [place] Height 165.1 cm (5' 5 ) 03/17/2023 11:26 AM [place] Body Mass Index 29.95 03/17/2023 11:26 AM [place] Plan of Treatment Not on file Insurance MEDICAID [employer] Advance Directives * Full Code (Latest Code Status on File) Date Activated Date Inactivated Comments 03/18/2023 5:31 PM 03/20/2023 3:07 PM CPR-Full Treat ment: FULL ARREST: Attempt Resuscitation/CPR wit intubation and mechanical ventilation. PRE-ARREST: Use entire range of life support measures to stabilize the patient. Care Teams Certified Pharmacist Assistant Relationship Specialty Start Date End Date Provider, None [place] PCP - General 03/17/23
--- OUTSIDE RECORDS SUMMARY | 2024-06-12 14:59 | XMS_ITS | Clinical Summary ---
Author Organization [facility] Address [address] [place] [address] Phone Care Team Providers Care Metal Crafts Teacher Name Role Phone Unavailable Unavailable Unavailable Reason for Visit and Chief Complaint NO SHOW Plan of Treatment No Plan of Treatment Recorded Assessments Includes: Assessments from this encounter No Assessments Recorded Medical Equipment - Implanted Devices Includes: Current Devices No Medical Equipment Recorded Medications Administered Includes: Administered Medications from this encounter No Administered Medications Recorded Results Includes: Results discussed during this encounter No Results Recorded For Specified Dates History of Present Illness Includes: History of Present Illness from this encounter No History of Present Illness Recorded Social History No Social History Recorded - Smoking Status Unknown Medical History Includes: Medical History addressed during this encounter No Medical History Recorded Family History Includes: Family History addressed during this encounter No Family History Recorded Review of Systems Includes: Review of Systems from this encounter No Review of Systems Recorded Mental Status Includes: Mental Status from this encounter No Mental Status Recorded Functional Status Includes: Functional Status from this encounter No Functional Status Recorded Physical Exam Includes: Physical Exam from this encounter No Physical Exam Recorded Clinical Notes Includes: Clinical Notes from this encounter No Clinical Notes Recorded
--- OUTSIDE RECORDS SUMMARY | 2024-06-12 15:11 | XMS_ITS | Continuity of Care Document ---
Author Organization [facility] Address [address] [place] [address] Phone Care Team Providers Care Employment Program Representative Name Role Phone Unavailable Unavailable Unavailable Medications [...] Diagnoses Date Provider Providers Copied on Encounter [facility] , [address], [place], [place], [id number], [place] tel:[phone] Dental Soulard Andujar No Information No Information Family History Family Member Type Diagnosis Age At Onset No Information Payers Payer name Insurance type Covered republican ID Authoriza tion(s) No Information Social History [...]
== END 2024-06-11 19:36 | disposition home or self-care (01) ==
PROVIDERS: Emergency Provider Physician Assistant
DX: K02.9 Dental caries, unspecified (principal); I10 Essential (primary) hypertension; F17.200 Nicotine dependence, unspecified, uncomplicated
CPT/HCPCS: 96372; 99283; A9270; J1885

== ENCOUNTER 2024-07-19 17:10 | Emergency (ER) | payer MEDICAID, SELFPAY ==
--- NOTE | 2024-07-19 17:14 | ED_ITS ---
HPI - Eye Problem General Chief complaint: Eye Problems Stated complaint: bump in inner right eye Time Seen by Provider: 07/19/24 17:18 Source: patient, RN notes reviewed and old records reviewed Mode of arrival: ambulatory Limitations: no limitations History of Present Illness HPI Narrative: 33-year-old female presents to the [facility] with a bump to the right lower eyelid. States it has been intermittent coming and going for a couple of weeks. No treatment prior to arrival Denies any blurry vision or change in vision. Related Data Allergies Allergy/AdvReac Type Severity Reaction Status Date / Time No Known Allergies Allergy Verified 07/19/24 17:24 Review of Systems Review of Systems: All systems reviewed & are unremarkable except as noted in HPI and below Constitutional: Constitutional: Reports no additional constitutional complaints Eyes: Eyes: Reports as per HPI ENT: Reports system reviewed and no additional complaints, except as documented Cardiovascular: Cardiovascular: Reports no additional cardiovascular complaints, Denies chest pain and Denies dyspnea Respiratory: Respiratory: Reports no additional respiratory complaints, Denies chest congestion, Denies cough and Denies dyspnea Musculoskeletal: Musculoskeletal: Reports no additional musculoskeletal complaints Integumentary/Breasts: Skin/Breast: Reports system reviewed and no additional complaints, except as docu PMFSH Past Medical History Medical History Patient denies medical problems Surgical History Surgical History History of repair of ACL Social History Social History Smoking status: Current every day smoker Alcohol intake: former Substance use: never Substance use type: marijuana Gender identity (if verbalized by the patient): Female Comments At the time of my signature, I reviewed and agree with the nursing past medical, surgical, social, and family history. There is no relevant family history pertinent to the patient complaint. Exam Const: General: cooperative, healthy appearing, comfortable, no acute distress, well developed, alert and well nourished Nutritional Appearance: well nourished Orientation/consciousness: patient oriented x3 Limitations: no limitations HENMT: Head: normal to inspection Ears: hearing grossly normal bilaterally, external ears normal, TM's normal bilaterally, EAC's normal, mastoids normal and no periauricular adenopathy Mouth: Yes Normal oral and palatal mucosa present, Yes lip normal, Yes tongue normal and Yes moist mucous membranes Throat: posterior oropharynx normal, uvula midline and no uvular edema Eyes: General: appearance normal, both eyes and all related structures Visual Fair: normal visual fair by confrontation Alignment and Position: alignment normal Eyelids: eyelid abnormality right lower eyelid inflamed cyst external lid; Negative for ectropion, without entropion, without erythema, without foreign bodies, without lacerations, no crusting or scaling of lid margins and with no swelling Conjunctivae: conjunctivae normal Sclera: sclerae normal Pupils: Equal, round and reactive pupils present and Pupils normal by confrontation EOM: EOMs intact bilaterally Direct Ophthalmoscopy: normal light reflex and no photophobia Neck: Neck: normal visual inspection, full ROM, no lymphadenopathy and no meningeal signs Chest: Chest palpation & inspection: normal inspection of the chest Resp: Effort & Inspection: normal respiratory effort and able to speak in complete sentences Cardio: Rate: regular rate Skin: General skin exam: normal color and no rashes or lesions noted Neuro: General: patient oriented x3, gait normal, moves all extremities and no meningeal signs Cognition (Neuro): normal cognition Speech: normal speech Gait exam (Neuro): Normal gait present Extrem: General: normal to inspection, full ROM, capillary refill normal and normal gait Psych: Appearance: grossly normal and well kempt Mental Status: mental status grossly normal Speech and movement: Normal speech and movement present and Clear speech present Affect: normal affect Attitude: cooperative Course Course Level of Care: Express Care Visit Vital Signs Vital signs: Vital Signs Temperature 98.3 F 07/19/24 17:18 Pulse Rate 73 07/19/24 17:18 Respiratory Rate 16 07/19/24 17:18 Blood Pressure 150/104 H 07/19/24 17:18 Pulse Oximetry 100 07/19/24 17:18 Oxygen Delivery Room Air 07/19/24 17:18 Temperature 98.3 F 07/19/24 17:18 Pulse Rate 73 07/19/24 17:18 Respiratory Rate 16 07/19/24 17:18 Blood Pressure 150/104 H 07/19/24 17:18 Pulse Oximetry 100 07/19/24 17:18 Oxygen Delivery Room Air 07/19/24 17:18 Reviewed MDM - Eye Problem MDM Narrative Medical decision making narrative: Patient sitting in exam room. Patient is nontoxic, vitals are stable. Patient presents for a stye to the right lower lobe lid. Patient appropriate for outpatient treatment with close follow-up Discharge instructions reviewed with patient, as well as provided in writing per nursing staff. The instructions also include specific and strict return/GO TO THE ER as well as f/u information. All questions have been answered, and the patient deny any further questions with discharge and discharge plan. Some parts of this dictation were generated by voice recognition software and may contain typographical and/or grammatical inaccuracies. Differential Diagnosis Differential diagnosis: Likely corneal abrasion, conjunctivitis, corneal ulcer and other (Stye) Critical Care Time Critical Care Time Critical Care Time: No Discharge Plan Discharge Clinical Impression: Hordeolum externum (stye) Qualifiers: Laterality: right Eyelid: lower Qualified Code(s): H00.012 - Hordeolum externum right lower eyelid Patient Disposition: Home Condition: Stable Instructions: Antibiotic Form, Stnaveed (ED) Additional Instructions: Today your blood pressure was 150/104. Is extremely important to follow-up with primary care provider to have this rechecked. Untreated or undertreated blood pressure can lead to more serous health issues. Apply warm compresses every 2-3 hours for 5-10 minutes while awake. Gently wipe away any discharge with warm water Do not pop or touch her eye. When applying the eye ointment please wash your hands before and after. Follow-up with a eye doctor You should follow-up with an eye doctor within the next 72 hours [facility]: [place]- [phone] [place] [phone] [facility] [phone] [place]: [facility] [phone] or [phone] [place]- [phone] [facility] [phone] [facility] [phone] [facility]- [phone] Patient Language: Urdu Prescriptions: New erythromycin 5 mg/gram (0.5 %) ointment 0.5 inch RIGHT EYE TID Qty: 3.5 0RF Follow-up/Referrals: Gagandeep Minor MD [Physician] - PHYSICIAN,REGULATORY ANALYST [Primary Care Provider] - Stand Alone Forms: Work/School Release IP Time of Disposition: 17:26
[2024-07-19 17:18] VITALS: BP 150/104; PULSE 73; RESP 16; TEMP 36.8; O2SAT 100
== END 2024-07-19 17:32 | disposition home or self-care (01) ==
PROVIDERS: Emergency Provider Nurse Practitioner
DX: H00.012 Hordeolum externum right lower eyelid (principal); F17.200 Nicotine dependence, unspecified, uncomplicated
CPT/HCPCS: 99213; G0463